=== PATIENT | male | born 1960 | race African-American/Black ===

== ENCOUNTER → 2020-09-18 09:38 | Outpatient (CLI) | payer OTHER, SELFPAY ==
[2020-09-18 11:00] LABS: COVID19 -Nasal RAPID Negative (Negative)
== END ==
PROVIDERS: PCP Orthopaedic Surgery; Visit Provider Physician Assistant
DX: Z20.822 Contact with and (suspected) exposure to COVID-19 (principal)
CPT/HCPCS: 87635

== ENCOUNTER 2020-09-20 06:05 | Inpatient (IN) | payer OTHER, SELFPAY ==
[2020-09-20] VITALS (11 sets, daily range): BP systolic 118–144; BP diastolic 73–90; PULSE 89–101; RESP 14–22; TEMP 35.6–36.8; O2SAT 93–97; BMI 31.3
--- NOTE | 2020-09-20 07:00 | DI.RAD.S_ITS ---
PROCEDURE: XR SHOULDER LT 1V INDICATIONS: post op left total shoulder TECHNIQUE: 1 views of the shoulder were acquired. COMPARISON: None. FINDINGS: Bones: Patient is status post left shoulder arthroplasty . Shoulder alignment is anatomic. No suspicious bony lesions. Visualized ribs appear intact. Soft tissues: Expected postsurgical changes are noted in left shoulder soft tissue. IMPRESSION: Postop changes from left shoulder arthroplasty with anatomic shoulder alignment. Dictated by: Tyshawn Jordan M.D. on 09/20/2020 at 13:34 Approved by: Tyshawn Jordan M.D. on 09/20/2020 at 13:35
[2020-09-20] MEDS: ACETAMINOPHEN 325 MG TABLET 975 MG PO (07:06)
[2020-09-20] MEDS: MELOXICAM 7.5 MG TABLET 15 MG PO (07:06)
[2020-09-20] MEDS: PREGABALIN 75 MG CAPSULE PO (07:06)
--- NOTE | 2020-09-20 07:34 | PM.PREOP ---
Pre-operative Note COVID-19 COVID-19 status: Negative Result date/Date tested (Pos, Neg/Pending): 09/18/20 Interval Note History & Physical reviewed/Exam performed by Physician: Yes Changes to H&P: No
[2020-09-20] MEDS: MIDAZOLAM 2 MG/2 ML VIAL IV (07:36)
--- NOTE | 2020-09-20 07:38 | P.OP_ITS ---
Operative Date/Time/Diagnoses Date of procedure: 09/20/20 Time of procedure: 10:28 Pre-op diagnosis: Left shoulder osteoarthritis Post-op diagnosis: same Procedure & Clinicians Procedure: Left total shoulder replacement Same procedure as scheduled: Yes Indications: The patient has had progressively worsening left shoulder pain with radiographic changes consistent with arthritis. Non-operative management has failed and the patient has requested total shoulder replacement. The risks, benefits and alternatives to surgery were discussed with the patient prior to proceeding. Risks discussed included, but were not limited to, failure to relieve pain, stiffness, infection, nerve damage, deep venous thrombosis, pulmonary embolism, stroke, coma, heart attack, permanent paralysis and , as well as the potential need for eventual revision of the prosthetic. Surgeon: Reinaldo Wagner Biomass Production Manager: Isaiah Panchal Click Yes if Unassisted: No Anesthesia Type: General, Peripheral nerve block and Local Operative Notes Closure Type: primary Specimen(s): none sent Prosthetic devices, grafts, tissues, transplants, or devices: Implants used in this procedure manufactured by the [employer] and included an Eclipse stemless total shoulder system with a 49 mm trunion, a large cage screw, a medium VaultLock glenoid and a 49/20 Eclipse humeral head. In addition a SpeedBridge set of 4 SwiveLock anchors was used for subscapularis repair. Applied: implant(s) Estimated Blood Loss (mL): 100 Blood products transfused: none Procedure in detail: The patient was seen in the pre-operative area, where the patient identified the left shoulder as the operative site and this was marked with my initials. The patient received pre-operative antibiotics, underwent an interscalene block, and was taken to the operating room and placed on the operative table in the supine position. After satisfactory anesthesia, a full ?time out? was performed. The patient was repositioned in the ?beach chair? position using a dedicated positioner. All pressure points were well padded, and the knees were slightly bent to prevent tension on the sciatic nerves. The left arm was prepared from the fingers to the base of the neck with ChloroPrep in the usual fashion and draped through sterile drapes. An approximately 15 cm incision was created, starting at the clavicle above the coracoid process and extended towards the deltoid insertion. The deltopectoral interval was used to access the shoulder. The interval was identified at the coracoid and carried distally as there was no obvious cephalic vein distally. A self retaining retractor was placed. The upper centimeter of the pectoralis major tendon was released. The ?three sisters? were identified and cauterized. The axillary nerve was palpated and protected throughout the case. The biceps was released from its groove and tenodesed over the top of the pectoralis major tendon. The subscapularis was released from the lesser tuberosity with a subscapularis peel and tagged for later repair. Humeral osteophytes were removed. The shoulder was dislocated and a cutting guide was used for the proximal humeral osteotomy in 30 degrees of retroversion. The trunion was sized. The central cylinder was scored in the metaphyseal bone. The guide pin was used to measure the depth of the screw. A proximal humeral protector was then placed. We then removed the self-retaining retractor and placed retractors to access the glenoid. The subscapularis was released with a ?360 degree release? with care being taken to protect the axillary nerve with the inferior portion of this procedure. The remnant of labrum and biceps stump were removed. The appropriate size reamer was chosen with the glenoid sizer, and the guide pin placed. The glenoid was appropriately reamed. The center hole was enlarged and the upper pole and inferior slot were created. The trial glenoid was placed with good stability. We then cemented the final implant into place after irrigating the peg holes and drying them with thrombin-soaked Gelfoam. The central peg of the implant was coated with demineralized bone matrix as the humeral head had been dropped from the field and no bone graft was available. We returned our attention to the humerus, the final trunnion was placed and impacted into the metaphyseal bone. The central cage screw was then screwed into position with a small amount of demineralized bone matrix in the screw as graft. A trial humeral head was applied and a trial reduction performed. Stability was checked with 50% posterior translation, 45? external rotation at the side with the subscapularis held in the repaired position and 80? internal rotation in the ?scarecrow position?. This was felt to be satisfactory and the appropriate implants were opened. The guide for anchor placement was applied to the neck of the humerus. For holes were created with the awl for anchor placement using the guide to avoid the cage screw. The final humeral head was then impacted into position. The joint was relocated one final time. The joint was irrigated and the subscapularis repaired using a double row SpeedBridge technique. The top of the subscapularis was closed to the leading edge of the supraspinatus with a figure of 8 #2 TiCron to close the rotator interval. The deltopectoral interval was closed with interrupted 0 Vicryl. The subcutaneous layer was closed with 3-0 Vicryl, and the skin with a running 3-0 V-Lock suture and SteriStrips. An Aquacel Ag dressing was applied, the patient?s arm was placed in a sling, and the patient was taken to recovery having tolerated the procedure well. Complications: none Post-operative Condition: stable Disposition: PACU Plan for aftercare: The patient will be maintained on a standard total shoulder replacement protocol with passive range of motion limited to 90 degrees forward flexion, 0 degrees external rotation at the side, 0 degrees abduction and internal rotation to the body. The patient will receive aspirin and sequential compression devices for DVT prophylaxis. The patient will be discharged home when safe for the home environment, likely tomorrow.
--- NOTE | 2020-09-20 07:51 | P.PCN_ITS ---
Procedures Date/Time Date of procedure: 09/20/20 Time of procedure: 07:44 Nerve Block Time out performed: Yes Local anesthetic used: other (15mL 0.5opivacaine, 5mL 2* idocaine) Location of anesthetic used: interscalene Amount of anesthesia used (mL): 20 Nerve blocks: brachial plexus (interscalene) Procedure successful: Yes Patient tolerated procedure: well Complications: none Additional comments: Brachial plexus nerve block for post operative pain management. Risks and benefits discussed, including bleeding, infection, intravascular injection, nerve damage, block failure. Standard ASA monitors, NC O2. Pt supine. Chloroprep site preparation, sterile technique. Brachial plexus identified with US guidance, traced from supraclavicular to interscalene. 1mL 2% lidocaine skin wheal. 22g x 50mm Pajunk advanced with in-plane US guidance to brachial plexus. Negative aspiration. LA injected with intermittent negative aspiration. Good LA spread noted on US. No pain, no paraesthesia. Pt tolerated procedure well. Vital signs stable.
[2020-09-20] MEDS: LACTATED RINGERS 1,000 ML 42 ML IV ×2 (07:52→09:59)
[2020-09-20] MEDS: CEFAZOLIN 2 GM/100 ML FROZ.PIGGY IV (07:53)
--- NOTE | 2020-09-20 08:00 | SUR.PREOP ---
Block start time at 0736 . Monitoring initiated and maintained throughout procedure. Oxygen at 2L NC and 2MgVersed given per anesthesiologist order. Patient remained stable throughout procedure, no adverse reactions noted. Block end time 0744.
--- NOTE | 2020-09-20 08:28 | SUR.OPER ---
Beach chair with Kailey/Kumar shoulder positioner. Lower body on padded OR bed. Head in foam padded head cradle, secured with straps. Non-operative arm secured <90 degrees abduction. Pillow under knees. Safety belt at thigh. Cloth tape over blanket over lower legs.
[2020-09-20] MEDS: THROMBIN (RECOMBINANT) 5,000 UNIT VIAL 5000 UNIT TOP (08:35)
[2020-09-20] MEDS: BUPIVACAINE 0.25% W/ EPI (PF) 10 ML VIAL 20 ML INJ (08:36)
[2020-09-20] MEDS: TRANEXAMIC ACID 1,000 MG VIAL 1000 MG INJ ×2 (08:39→09:57)
[2020-09-20] MEDS: LACTATED RINGERS 1,000 ML 100 ML IV (12:28)
--- NOTE | 2020-09-20 12:37 | PC.NURSE ---
Addendum entered by Rosie Ramirez R.N. 09/20/20 15:14: Patient worked with PT. Cleared for D/C. Patient and instructed on f/u appointment, s/s of infection, medications and activity. Patient and spouse verbalized understanding. IV removed. Tip intact, patient tolerated. Patient discharged via wheelchair with aide assist. Original Note: Assumed care of patient at 1130 from PACU. Patient A/O x 4. LR at 100 cc/hr infusing in right hand. Patient at 96% on room air. Intermittent cough r/t intubation. CPAP and belongings retrieved from PACU. Patients is bedside from admission. Lungs CTA, IS bedside, patient instructed on use. Cont. pulse ox on. HR WNL, pulses equal. LUE CMS intact, aquacel is CDI, sling intact. SCD's on. Patient denies pain at this time. No post op void at this time. BT active x 4, patient tolerating general diet. Patient instructed to call before getting OOB the first time. Call light in reach.
--- NOTE | 2020-09-20 14:31 | PT.IIE ---
Current Diagnoses Primary osteoarthritis, left shoulder (09/20/20) Surgery Performed Operation Date: 09/20/20 07:45 Actual Procedures p Total Shoulder Arthroplasty(Left) - Reinaldo Wagner MD Physical Therapy Inpatient Evaluation/Re-Eval M1 PT/OT-IP Prior Functional Status Start: 09/20/20 12:44 Freq: NEEDED Status: Discharge Protocol: Document 09/20/20 14:31 AW (Rec: 09/20/20 15:17 AW [id number]) Medical Review Prior Functional Status Medical History Reviewed Yes Communication Pt is an effective verbal communicator. Mobility and Gait Pt is independently mobile but admits that he usually has to sit and rest after a grocery shopping trip. He had lumbar surgery ~9 years ago. Activities of Daily Living and IADL's Pt has been slow but independent with all ADL's. He drives but on a limited basis . Social History Household Members spouse Living Arrangements House Number of Floors (Floors) Two Floors Number of Stairs To Enter/Railing? 1 CARMEN through the garage. There is a table on one side and a work bench on the other which he can use for support. 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 M2 PT-IP Current Condition Start: 09/20/20 12:44 Freq: NEEDED Status: Discharge Protocol: Document 09/20/20 14:31 AW (Rec: 09/20/20 15:17 AW [id number]) Physical Therapy Current Condition Current Condition Evaluation Date 09/20/20 Treatment Diagnosis L TSA; decreased indep with ADL's Onset Date 09/20/20 Precautions Shoulder Precautions Sling,PROM,Internal Rotation to Body,No External Rotation, No Abduction,Forward Flexion to 90 degrees,Pendulums Brace soft sling LUE Weight Bearing Status Weight Bearing Status Non-Weight Bearing Allowed Weight Bearing Amount (enter % NWB LUE or #) (%) M3 PT-IP Subjective Start: 09/20/20 12:44 Freq: NEEDED Status: Discharge Protocol: Document 09/20/20 14:31 AW (Rec: 09/20/20 15:17 AW [id number]) Subjective Physical Therapy Visit Type Type Initial Evaluation Visit Start Time 14:04 Visit Stop Time 14:31 Total Visit Minutes 27 Notes Pt's was present and participated in sling management and precaution awareness training Number of CASE THERAPIST Visits 0 Physical Therapy Visit Comments Patient Comments Pt would like to go home today Therapy Pain Assessment Pain When Pain Assessed At Rest Pain Present Pain Present Denied Pain M4 PT-IP Mobility and Gait Start: 09/20/20 12:44 Freq: NEEDED Status: Discharge Protocol: Document 09/20/20 14:31 AW (Rec: 09/20/20 15:17 AW [id number]) PT-Bed Mobility Assessment Supine to Sit Supine to Sit Standby Assistance,Head of Bed Elevated Sit to Supine Sit to Supine Standby Assistance,Head of Bed Elevated Scooting Scooting to Edge of Bed Standby Assistance PT-Transfer Assessment Sit to and From Stand Sit to and from Stand Standby Assistance Equipment Transfer Assistive Device Gait Belt Transfers Transfer Destination Bed,Chair Transfer Technique Stand Step Pivot Transfer Ability Level of Assist Standby Assistance Comments Mobility Comments Pt was lying in the bed as PT arrived. BP 146/89 HR 89. He states he has a firm wedge pillow for bed so practiced supine to sit with HOB elevated. He stood at EOB SBA and walked to the sink with steady gait. Pt and his spouse participated in training for fitting, donning, and doffing the sling. Pt then donned a face mask and ambulated in the halls a total of 150 feet and completed stair assessment. On return to the room, he transferred to and from the chair without need for UE support before returning to supine on the bed. All mobility was SBA. Gait Assessment Gait Gait Assistance Required: Standby Assistance Distance (Feet) 150 Able to Maintain Weight Bearing Status Yes During Gait Assistive Devices Assistive Device Gait Belt Orthotic/Prosthetic Devices or Brace: Yes Gait Deviations General Gait Pattern Within Normal Limits Comments Gait Comments Steady gait in and out of the room SBA. Stair Climbing Assessment Evaluation Level of Assist On Stairs Standby Assistance Technique/Endurance Stair Climbing Direction Ascend and Descend Stair Climbing Technique Step to Step Number of Steps Climbed 3 Query Text: Stair Climbing Set # Repetitions (reps) 1 PT-Balance Assessment Sitting Balance and Reactions Static Sitting Balance Ability Good Dynamic Sitting Balance Ability Good Standing Balance and Reactions Static Standing Balance Ability Good Dynamic Standing Balance Ability Good Device Used none M5 PT-IP Objective Assessments Start: 09/20/20 12:44 Freq: NEEDED Status: Discharge Protocol: Document 09/20/20 14:31 AW (Rec: 09/20/20 15:17 AW [id number]) Orientation Orientation/Cognition Level of Alertness Alert Orientation Name,Age,Birthday,Month,Date, Year,Day of Week,Place, Situation Language Function Ability No Deficits Noted Safety Awareness Understands Safety Issues Memory Description No Deficits Noted Gross Range of Motion Upper Extremity ROM Assessment Left Impaired Lower Extremity ROM Assessment Within Functional Limits Strength Upper Extremity Strength Assessment Left Impaired Lower Extremity Strength Assessment Within Functional Limits Comments Strength Comments RUE grossly 5/5 all planes Sensation Assessment Sensation Gross Sensation Left UE Impaired Light Touch Impaired Proprioception (Position) Impaired Sensation Description Numbness Muscle Tone Muscle Tone WNL Yes M6 PT-IP Treatment Start: 09/20/20 12:44 Freq: NEEDED Status: Discharge Protocol: Document 09/20/20 14:31 AW (Rec: 09/20/20 15:17 AW [id number]) Physical Therapy Treatment Exercises Exercises Shoulder Pendulums,Elbow Flexion/Extension,Wrist ROM, Hand ROM Education Education Provided Precautions,Weight Bearing Status,Post-Op Packet,Safety Other Treatments Other Treatment Performed Educated pt on shoulder precautions, sling fitting, and safe mobility with LUE in sling. Pt and his spouse understood all and could return demonstrate. M7 PT-IP Assessment and Plan Start: 09/20/20 12:44 Freq: NEEDED Status: Discharge Protocol: Document 09/20/20 14:31 AW (Rec: 09/20/20 15:17 AW [id number]) PT Summary Assessment and Plan Potential Rehabilitation Potential Good Status of Condition at Evaluation Evolving Summary Impairments Pain,ROM,Strength,Sensation, Bed Mobility,Transfers Assessment Summary Matthew is a 60 yo man seen for PT evaluation on POD0 following L anatomic TSA. He is right-hand dominant and independent in all regards at baseline. Pt required no more than SBA on evaluation and was able to don/doff the shoulder sling with 's assist. Pt will be safe to discharge home with assist and outpatient PT once medically cleared. Goals Bed Mobility Goal Independent Transfer Goal Independent Gait Goal Independent Gait Distance 300 Frequency of Treatment Frequency Of Treatment Twice a Day Treatment Plan Physical Therapy Treatment Plan Bed Mobility Training,Transfer Training,Gait Training, Therapeutic Exercise,Balance Retraining,Post Op Education, Discharge Planning,Hot or Cold Pack Precautions Shoulder Precautions Sling,PROM,Internal Rotation to Body,No External Rotation, No Abduction,Forward Flexion to 90 degrees,Pendulums Brace soft sling LUE Recommendations To Nursing Amount of Assist Needed Standby Assistance Discharge Recommendations PT Discharge Recommendations Home with Assistance, Outpatient PT Transportation Needs at Discharge Private Vehicle
[2020-09-20] MEDS: ACETAMINOPHEN 325 MG TABLET 650 MG PO (15:01)
== END 2020-09-20 15:15 | disposition home or self-care (01) | DRG 483 ==
PROVIDERS: Admitting Provider Orthopaedic Surgery; PCP Orthopaedic Surgery; Referring Provider Family Medicine; Visit Provider Orthopaedic Surgery
PROC: 0RRK0JZ Replacement of Left Shoulder Joint with Synthetic Substitute, Open Approach (ICD-10-PCS; CPT 23472; principal; 2020-09-20 07:45)
DX: M19.012 Primary osteoarthritis, left shoulder (principal); I10 Essential (primary) hypertension; G47.33 Obstructive sleep apnea (adult) (pediatric)
CPT/HCPCS: 64415; 73020; 97161; C1776; J0690; J1100; J2250; J2405; J2704; J3010

== ENCOUNTER → 2020-11-15 09:58 | Outpatient (CLI) | payer OTHER, SELFPAY ==
[2020-09-20 12:15] VITALS: BMI 31.3
[2020-11-15 10:58] LABS: COVID19 -Nasal RAPID Negative (Negative)
== END ==
PROVIDERS: PCP Orthopaedic Surgery; Visit Provider Student in an Organized Health Care Education/Training Program
DX: Z20.822 Contact with and (suspected) exposure to COVID-19 (principal); Z01.812 Encounter for preprocedural laboratory examination
CPT/HCPCS: 87635

== ENCOUNTER 2020-11-17 08:52 | Day surgery (SDC) | payer OTHER, SELFPAY ==
[2020-09-20 12:15] VITALS: BMI 31.3
--- NOTE | 2020-11-17 | PATH_ITS ---
[facility] Accession Number: [id number] . 01 Material submitted: . PART A: rectum - RECTAL POLYP PART B: colon - ASCENDING COLON POLYP X2 PART C: sigmoid colon - SIGMOID COLON POLYPS X6 . 02 Diagnosis: A. Rectum, Polyp, Biopsy: Tubular adenoma. . B. Ascending Colon, Polyp x2, Biopsy: Tubular adenomas. . C. Sigmoid Colon, Polyps x6, Biopsies: Hyperplastic polyps. [facility] 11/22/2020 1121 Local . 02 Electronically signed: . Renetta Estevez MD, Pathologist NPI- [id number] . 01 Gross description: . Part A: RECTAL POLYP: Received in formalin is 1 fragment(s) of mendoza, soft tissue measuring 0.4 x 0.3 x 0.3 cm submitted entirely in 1 cassette(s) Part B: ASCENDING COLON POLYP X2: Received in formalin are 2 fragment(s) of mendoza, soft tissue measuring 0.4 x 0.4 x 0.3 cm to 0.4 x 0.3 x 0.3 cm submitted entirely in 1 cassette(s) Part C: SIGMOID COLON POLYPS X6: Received in formalin are multiple fragment(s) of mendoza, soft tissue measuring 2.0 x 1.1 x 0.3 cm in aggregate submitted entirely in 1 cassette(s) /KARY 11/18/2020 0912 Local . 02 Pathologist provided ICD-10: D12.8, D12.2 . 02 CPT . 798263, [id number], 355139 Performed at: [facility] [address], [place], [place] [id number] MD Julius Dillard MD Phone: [phone] Performed at: 02 [place] [id number] [place] [id number] MD Renetta Estevez MD Phone: [phone]
[2020-11-17 09:04] VITALS: BMI 66.5
[2020-11-17] MEDS: LACTATED RINGERS 1,000 ML 200 ML IV (09:13)
--- NOTE | 2020-11-17 10:17 | PM.HP.1 ---
History of Present Illness History of Present Illness Chief complaint: SCREENING COLONOSCOPY W/POSS BX Patient History Family & Social History Social History: household members spouse Tobacco & Substance use: Smoking Status Former smoker alcohol intake current alcohol intake frequency a few times a week Substance Use Type does not use Meds Home Medications and Allergies Home Medications Medication Instructions Recorded Confirmed Type dorzolamide 1 drp EYE-RIGHT DAILY 09/20/20 11/17/20 History gabapentin 300 mg PO BEDTIME 09/20/20 11/17/20 History hydroxyzine pamoate 25 mg PO Q6HR PRN #30 cap 09/20/20 11/17/20 Rx latanoprost 1 drp EYE-BOTH DAILY 09/20/20 11/17/20 History lisinopril-hydrochlorothiazide 1 tab PO DAILY 09/20/20 11/17/20 History [Zestoretic] oxycodone 5 mg PO Q4H PRN #40 tab 09/20/20 11/17/20 Rx Allergies Allergy/AdvReac Type Severity Reaction Status Date / Time No Known Allergies Allergy Verified 09/17/20 12:16 Review of Systems Review of Systems ROS: Yes All systems reviewed with the patient and are negative except as otherwise documented Exam Vital Signs (past 8 hours): Oxygen Delivery Method Room Air Narrative Exam Narrative: Awake alert and oriented x3, pupils equal round reactive to light, oropharynx clear, heart regular rate and rhythm, lungs clear to auscultation bilaterally, abdomen nontender and nondistended, extremities without edema, no gross neurologic deficits noted Assessment & Plan Assessment & Plan narrative: Colon cancer screening for colonoscopy COVID-19 COVID-19 status: Negative
[2020-11-17] MEDS: MIDAZOLAM 5 MG/5 ML VIAL IV (10:28)
[2020-11-17] MEDS: fentaNYL 250 MCG/5 ML INJ IV (10:28)
--- NOTE | 2020-11-17 10:50 | PM.OP.ENDO ---
Operative Date/Time/Diagnoses Date of procedure: 11/17/20 Procedure & Clinicians Study performed: Colonoscopy with cold forceps and cold snare polypectomy Moderate conscious sedation was administered by the endoscopy nurse and supervised by the endoscopist. The following parameters were monitored: Oxygen saturation, heart rate, blood pressure, and response to care. 5 mg of midazolam and 100 mcg of fentanyl given. Same procedure as scheduled: Yes Indications: Colon cancer screening. Last colonoscopy was about 10 years ago. Procedure Notes Procedure in detail: Prior to the procedure, history and physical was performed, and patient medications and allergies were reviewed. Preprocedure nursing history and assessment was reviewed. Patient identification and proposed procedure were verified by the physician and nurse in the procedure room. The physical status of the patient was reassessed after the procedure. After informed consent was obtained including risks, benefits, and alternatives, the scope was passed under direct vision. Throughout the procedure, the patient's blood pressure, pulse, and oxygen saturations were monitored continuously. The colonoscope was introduced through the anus and advanced to the cecum as identified by the appendiceal orifice and ileocecal valve. The patient tolerated the procedure well. Bowel prep was deemed adequate to detect polyps greater than 5 mm. Digital rectal examination and perianal examinations were unremarkable. Retroflexion in the rectum was unrevealing. Scattered small diverticuli noted in the sigmoid colon A 4 mm sessile rectal polyp was removed using a cold snare and retrieved 6 sessile polyps in the sigmoid colon measuring between 4 and 8 mm were removed using a cold snare and retrieved. Two 3 mm sessile polyps were removed from the ascending colon using a cold forceps Impression: Sigmoid colon diverticulosis 4 mm rectal polyp removed Six polyps measuring between 4 and 8 mm in the sigmoid colon removed Two 3 mm ascending colon polyps removed Sedation minutes: 25 Complications: other (EBL minimal. No complications) Post-procedure Plan for aftercare: Follow-up pathology results Repeat colonoscopy at a date to be determined based on pathology results Resume home medications High fiber diet Patient has a contact number available for emergencies. The signs and symptoms of potential delayed complications were discussed with the patient. Return to normal activities tomorrow. Written discharge instructions were provided to the patient. Discharge home with escort
[2020-11-17 10:51] VITALS: BP 106/78; PULSE 96; RESP 16; TEMP 36.9; O2SAT 97
[2020-11-17 10:56] VITALS: BP 116/81; PULSE 90; RESP 14; O2SAT 98
[2020-11-17 11:03] VITALS: BP 115/84; PULSE 90; RESP 22; O2SAT 98
[2020-11-17 11:08] VITALS: BP 111/79; PULSE 91; RESP 19; O2SAT 98
[2020-11-17 11:40] VITALS: BP 120/70; PULSE 90; RESP 16; TEMP 36.9; O2SAT 99
== END 2020-11-17 11:53 | disposition home or self-care (01) ==
PROVIDERS: PCP Orthopaedic Surgery; Referring Provider Internal Medicine; Visit Provider Internal Medicine
PROC: 0DJD8ZZ Inspection of Lower Intestinal Tract, Via Natural or Artificial Opening Endoscopic (ICD-10-PCS; CPT 45378; principal; 2020-11-17 10:00)
DX: Z12.11 Encounter for screening for malignant neoplasm of colon (principal); K57.30 Diverticulosis of large intestine without perforation or abscess without bleeding; K62.1 Rectal polyp; D12.2 Benign neoplasm of ascending colon
CPT/HCPCS: 45385; 45380; J2250; J3010

== ENCOUNTER → 2021-04-21 13:33 | Outpatient (CLI) | payer OTHER, SELFPAY ==
[2020-09-20 12:15] VITALS: BMI 31.3
--- NOTE | 2021-04-21 | DI.MRI.S_ITS ---
PROCEDURE: MR CERVICAL SPINE WO CON INDICATIONS: Spinal stenosis, cervical region TECHNIQUE: Noncontrast sagittal T1 spin echo and T2 fast spin echo, sagittal STIR, foraminal oblique sagittal T2 fast spin echo, and axial gradient echo or T2 fast spin echo through the cervical spine. COMPARISON: [facility] Outside Film, MR, MR CERVICAL SPINE WITHOUT CONTRAST, 03/19/2020, 9:50. FINDINGS: Image quality: Excellent. Alignment and Curvature: Straightening of the normal lordotic curvature. Grade 1 retrolisthesis of C3 on C4 and C4 on C5. Grade 1 retrolisthesis of C5 on C6 and C6 on C7. Bone Marrow: Multilevel degenerative endplate sclerosis and spurring. Diffuse facet arthropathy. No evidence of acute fracture. Spinal Cord: Visualized spinal cord has normal size and signal. No cerebellar tonsillar herniation. Paraspinous Soft Tissues: No paravertebral masses. Prevertebral soft tissues are normal in thickness. C2-C3: Mild canal and right foraminal narrowing. Severe left foraminal stenosis with nerve root compression. This appears progressed on the left since 03/19/20 C3-C4: Mild canal stenosis with face mint of the anterior thecal sac. Severe right foraminal stenosis with nerve root compression. Moderate left foraminal stenosis. There is mild progression bilaterally since the prior study. C4-C5: Mild canal narrowing. Severe bilateral foraminal stenosis with nerve root compression on both sides. This is minimally bilaterally progressed since the prior study. C5-C6: Minimal canal narrowing. Mild left foraminal stenosis. Moderate to severe right foraminal narrowing. Overall, no interval change. C6-C7: Mild canal narrowing. Moderate to severe bilateral foraminal stenosis without definite interval change. C7-T1: No definite canal stenosis. Moderate right foraminal narrowing and mild left foraminal stenosis, no interval change IMPRESSION: Severe multilevel spondylosis and facet arthropathy, with interval progression at C2-C3, C3-C4 and C4-C5. Dictated by: Gus Waddell M.D. on 04/21/2021 at 16:12 Approved by: uGs Waddell M.D. on 04/21/2021 at 16:20
== END ==
PROVIDERS: PCP Orthopaedic Surgery; Referring Provider Physical Medicine & Rehabilitation; Visit Provider Physical Medicine & Rehabilitation
DX: M48.02 Spinal stenosis, cervical region (principal); M47.812 Spondylosis without myelopathy or radiculopathy, cervical region
CPT/HCPCS: 72141

== ENCOUNTER → 2021-09-19 08:45 | Outpatient (CLI) | payer OTHER, SELFPAY ==
[2020-09-20 12:15] VITALS: BMI 31.3
[2021-09-19 11:00] LABS: COVID19 -Nasal RAPID Negative (Negative)
== END ==
PROVIDERS: PCP Orthopaedic Surgery; Visit Provider Family Medicine Sleep Medicine
DX: Z20.822 Contact with and (suspected) exposure to COVID-19 (principal)
CPT/HCPCS: 87635; C9803

== ENCOUNTER 2021-09-21 12:04 | Day surgery (SDC) | payer OTHER, SELFPAY ==
[2020-09-20 12:15] VITALS: BMI 31.3
[2021-09-14 14:56] VITALS: BMI 32.3
[2021-09-21] VITALS (20 sets, daily range): BP systolic 122–195; BP diastolic 78–110; PULSE 88–119; RESP 12–24; TEMP 36.2–36.9; O2SAT 91–99; BMI 32.3
--- NOTE | 2021-09-21 | DI.RAD.S_ITS ---
PROCEDURE: XR CERVICAL SPINE 2V OR 3V INDICATIONS: C4-5 C5-6 ACDF TECHNIQUE: 2 intraoperative fluoroscopic view(s) of the cervical spine were acquired. COMPARISON: None. FINDINGS: Intraoperative fluoroscopic images of cervical spine shows anterior fusion at C4-5 and C5-6 levels. IMPRESSION: Fluoro guidance was provided intraoperatively for ACDF at C4-5 and C5-6 levels. Dictated by: Tyshawn Jordna M.D. on 09/21/2021 at 17:15 Approved by: Tyshawn Jordan M.D. on 09/21/2021 at 17:16
[2021-09-21] MEDS: ACETAMINOPHEN 325 MG TABLET 975 MG PO (12:33)
[2021-09-21] MEDS: LACTATED RINGERS 1,000 ML 42 ML IV ×2 (12:34→16:52)
--- NOTE | 2021-09-21 13:42 | PM.PREOP ---
Pre-operative Note COVID-19 COVID-19 status: Negative Result date/Date tested (Pos, Neg/Pending): 09/21/21 Criteria for continued procedure: Expected advancement of disease process, Possibility delay results in more complex future surgery or treatment, Increased loss of function, Continuing or worsening of significant or severe pain, Deterioration of the patient's condition or overall health and Delay expected to result in less-positive ultimate med/surg outcome Interval Note History & Physical reviewed/Exam performed by Physician: Yes Changes to H&P: No
--- NOTE | 2021-09-21 14:03 | SUR.OPER ---
Supine, head on gel donut. Arms padded with gel pads, tucked at sides, towel roll under shoulders. Safety belt at thigh. Legs uncrossed.
--- NOTE | 2021-09-21 14:37 | P.OP_ITS ---
Operative Date/Time/Diagnoses Date of procedure: 09/21/21 Time of procedure: 14:50 Pre-op diagnosis: 1. C4-5, C5-6 spinal stenosis with radiculopathy 2. C4-5, C5-6 spondylosis with radiculopathy Post-op diagnosis: same Procedure & Clinicians Procedure: 1. C4-5, C5-6 anterior cervical diskectomy and fusion 2. C4-5, C5-6 anterior interbody cage placement 3. C4-5, C5-6 anterior instrumentation with plate and screw placement in C5-C6 and C7 vertebrae 4. Utilization of microsurgical technique and operating microscope Same procedure as scheduled: Yes Indications: Patient has been having chronic neck pain and worsening cervical radiculopathy. Patient failed multiple conservative management with worsening pain weakness and numbness in her upper extremity. Patient has been having difficulty performing activity of daily living. After discussing risks benefits of treatment options, patient elected proceed with surgery. Surgeon: Krishna Ortega Geomorphologist: Divine Mary Click Yes if Unassisted: No Anesthesia Type: General Operative Notes Closure Type: primary Specimen(s): none sent Prosthetic devices, grafts, tissues, transplants, or devices: Globus Extend Plate, Titanium cages Estimated Blood Loss (mL): 5 Blood products transfused: none Procedure in detail: Patient was seen in the preoperative area. Risks and benefits of the surgery was discussed with the patient. Operative consent was obtained and placed in the chart. Patient was then taken to the operative room. Prophylactic antibiotic was given less than 0.5 hr prior to skin incision. General anesthesia was administered. Patient was placed into a supine position on her radiolucent table. Bilateral shoulders were taped down to allow proper C-arm imaging. Anterior cervical area was prepped and draped in a sterile fashion. Time-out was performed at this time. Using lateral C-arm imaging, the level between C4 and C6 was identified and marked on patient's neck. A oblique incision from midline towards medial border of sternocleidomastoid muscle was made. The platysma muscle was incised in line with skin incision. Metzenbaum scissor was used to develop the plane between the medial border of sternocleidomastoid d and the strap muscles medially. The carotid sheath and its contents were identified and protected behind the hand- held retractor during the entire case. The plane between the carotid sheath and strap muscles was developed with Metzenbaum scissors. Dissection was made down to the level of the anterior cervical fascia. Longus colli muscle was incised on the anterior aspect of vertebral bodies bilaterally from C4-6. Spinal needle was placed into the C5-6 disc space and confirmed with lateral C-arm imaging. Using microsurgical technique and operative microscope, anterior cervical diskectomy was performed at C4-5, C5-6 level. This was done by removing the disc material, removing the anterior and posterior osteophytes posterior longitudinal ligaments along with performing bilateral foraminotomies at both levels. Patient was found to have severe central and foraminal stenosis at both levels. Patient's stenosis was fully decompressed after decompression was completed. After the diskectomy was completed, 2 anterior interbody cages were obtained. The cages were packed with DBM bone grafting material. One cage each along with the bone grafting material was then packed into the interbody spaces from C4-C6 with one cage into each interbody level. After the cages were placed, the anterior cervical plate was stabilized to the C4-6 vertebrae using 2 screws at each each level. Total 6 screws were placed. After confirming placement of the hardware with AP and lateral C-arm imaging, the screws were locked into the plate using the locking mechanism and torque limiting screwdriver. After the hardware was placed and confirmed with AP and lateral C-arm imaging, the wound was irrigated with sterile normal saline. The platysma muscle and the subcutaneous tissue was closed with 2-0 Vicryl. The skin was closed with 4-0 Monocryl and Steri-Strips. Patient tolerated the procedure well. Patient was transferred recovery room in stable condition. There were no complications. Complications: none Post-operative Condition: stable Disposition: PACU Plan for aftercare: Admit to inpatient hospital
[2021-09-21] MEDS: CEFAZOLIN 2 GM/20 ML SYRINGE IV ×2 (14:50→22:57)
--- NOTE | 2021-09-21 14:59 | SUR.OPER ---
Supine, head on gel donut. Arms padded with gel pads, tucked at sides, towel roll under shoulders. Safety belt at thigh. Legs uncrossed. Pillow under knees, gel under heels
[2021-09-21] MEDS: BUPIVACAINE 0.25% (PF) 60 ML, EPINEPHrine 0.3 MG INJ (15:05)
[2021-09-21] MEDS: hydrOXYzine 50 MG/ML INJ 25 MG IM (17:28)
[2021-09-21] MEDS: LORazepam 2 MG/ML INJ 0.5 MG IV (17:28)
[2021-09-21] MEDS: ACETAMINOPHEN 325 MG TABLET 650 MG PO (19:05)
[2021-09-21] MEDS: hydrOXYzine pamoate 25 MG CAPSULE PO (19:06)
[2021-09-21] MEDS: SODIUM CHLORIDE 0.9% 1,000 ML 100 ML IV (22:08)
[2021-09-22 00:33] VITALS: O2SAT 95
[2021-09-22] MEDS: ACETAMINOPHEN 325 MG TABLET 650 MG PO (04:05)
[2021-09-22 04:24] VITALS: BP 132/95; PULSE 105; RESP 14; TEMP 36.8; O2SAT 96
[2021-09-22] MEDS: CEFAZOLIN 2 GM/20 ML SYRINGE IV (06:27)
[2021-09-22] MEDS: OXYCODONE IR 5 MG TABLET 10 MG PO (07:53)
--- NOTE | 2021-09-22 07:53 | P.DS_ITS ---
History of Present Illness History of Present Illness Date Patient Seen: 09/22/21 Time Patient Seen: 07:53 Chief complaint: neck pain s/p cervical ACDF Narrative: patient is complaining of mild to moderate neck pain this morning. He is very happy that his right shoulder pain has resolved since surgery. He denies any numbness or tingling in his upper extremities. No nausea or vomiting. Overall he is feeling well like to be discharged home today. Discharge Providers Provider Discharge Date: 09/22/21 Primary care physician: Uche Fontanez MD Consults: 09/21/21 12:44 Consult to Respiratory Therapy Evaluate & Treat Comment: Physician Instructions: Evaluate and treat 09/21/21 16:54 Consult to Physician Routine Comment: consult to primary care provider for followup Consulting Provider: Krishna Ortega Reason for consultation: Positive STOP BANG, management of obstructive sleep apnea Has provider been notified: Yes 09/21/21 18:20 Consult to Occupational Therapy Evaluate & Treat Comment: Physician Instructions: Evaluate and treat Consult to Physical Therapy Evaluate & Treat Comment: Physician Instructions: Evaluate and Treat Discharge provider: Cassidy Mar PA-C Summary Hospital Course Discharge Diagnosis: 1. C4-5, C5-6 spinal stenosis with radiculopathy 2. C4-5, C5-6 spondylosis with radiculopathy Hospital Course: Operative Date/Time/Diagnoses Date of procedure: 09/21/21 Time of procedure: 14:50 Procedure & Clinicians Procedure: 1.? C4-5, C5-6 anterior cervical diskectomy and fusion 2.? C4-5, C5-6 anterior interbody cage placement 3.? C4-5, C5-6 anterior instrumentation with plate and screw placement in C5-C6 and C7 vertebrae 4.? Utilization of microsurgical technique and operating microscope Same procedure as scheduled: Yes Indications: Patient has been having chronic neck pain and worsening cervical radiculopathy. Patient failed multiple conservative management with worsening pain weakness and numbness in her upper extremity.? Patient has been having difficulty performing activity of daily living.? After discussing risks benefits of treatment options, patient elected proceed with surgery. Surgeon: Krishna Ortega Package Handler: Divine Mary Click Yes if Unassisted: No Anesthesia Type: General Operative Notes Closure Type: primary Specimen(s): none sent Prosthetic devices, grafts, tissues, transplants, or devices: Globus Extend Plate, Titanium cages Estimated Blood Loss (mL): 5 Blood products transfused: none Status at Discharge Cognitive/behavioral status at discharge: oriented Functional status at discharge: uses cane/walker Overall status at discharge: patient is progressing back to baseline Exam Vital Signs (past 8 hours): - 09/22/21 00:33 09/22/21 04:24 Temperature 98.2 F Pulse Rate 105 H Respiratory Rate 14 Blood Pressure 132/95 H Pulse Oximetry 95 96 Oxygen Delivery Method Nasal Cannula Oxygen Flow Rate 0 Narrative Exam Narrative: Very pleasant 61-year-old male, resting comfortably in bed, no acute distress. Soft cervical collar is in place. Dressing is clean, dry, intact. Bilateral upper extremity: Motor function is grossly intact, sensation is grossly intact to light touch. [facility] Medical History HTN (hypertension) ANIBAL on CPAP Osteoarthritis Surgical History History of arthroplasty of left shoulder (09/20/20) Hx of colonoscopy (2020) Social History household members: spouse and children Smoking Status: Former smoker alcohol intake: current Discharge Assessment & Plan Assessment and Plan Assessment: -Stable status post C4-5, C5-6 cervical ACDF Plan of Treatment: -mobilize with PT/ OT. Soft cervical collar stays in place. Limit bending, lifting, twisting -Encouraged multimodal pain management -DC home today when cleared by PT Discharge Plan Discharge Plan Patient Disposition: Home Discharge orders & Medications Discharge Orders: Discharge (Order); Ordered 09/22/21 Ordered By: Cassidy Mar Prescriptions: New acetaminophen 500 mg capsule 500 mg PO Q4H MDD max 3000 mg per day PRN (Reason: Pain, Mild (1-3)) Qty: 90 0RF docusate sodium 100 mg Capsule 100 mg PO BID PRN (Reason: constipation from narcotic pain meds) Qty: 14 0RF hydroxyzine pamoate 25 mg Capsule 25 mg PO Q4HR PRN (Reason: muscle spasms/pain/nausea) Qty: 30 0RF oxycodone 5 mg Tablet See Rx Instructions .ROUTE .COMPLEX PRN (Reason: Pain, Severe (7-10)) Qty: 42 0RF Rx Instructions: take 1-2 tablets by mouth every 4 hours as needed for moderate to severe postop pain Continued dorzolamide 2 % drops 1 drp EYE-RIGHT DAILY 0RF latanoprost 0.005 % drops 1 drp EYE-BOTH DAILY 0RF lisinopril-hydrochlorothiazide [Zestoretic] 20-12.5 mg tablet 1 tab PO DAILY 0RF sildenafil 100 mg tablet 100 mg DAILY 0RF Follow up/Referrals: Uche Fontanez MD [Primary Care Provider] - Krishna Ortega MD [Physician] - ( 10-14 days for postoperative visit) Diet/Activity/Treatments Diet: Diet as Tolerated Other treatments: Medications: -OTC Tylenol 500 mg 1 tablet every 4 hours as needed for pain/fever. Max 6 ta blets per day. -Oxycodone 5 mg take 1-2 tablets every 4 hours as needed for moderate-severe pain (narcotic pain medication). -As needed medications: -Ducolax and /or MiraLax as needed for constipation from narcotic pain medications. -Pepcid AC as needed for stomach upset. -Vistaril (hydroxyine) 25mg 1 tab every 4 hours as needed for spasms/pain/nausea. Diet: -Stick with soft, easy to swallow foods for the first few days. Dressing/Wound care: -Keep dressing in place until postoperative follow-up office visit. -Okay to shower. Keep wound out of direct water stream. Can use PressNSeal plastic wrap to protect from shower stream. No soaking or submerging until all the scabs fall off (approximately 6 weeks). -Please call the office if dressing becomes wet, soiled, or saturated. Activities: -Wear collar when sitting upright or standing. May take off to eat and shower. Can sleep without collar, but you may find it more comfortable to wear while sleeping. -Limit bending, lifting, twisting. -Continue with home exercises as directed by your physical therapist. -Ice your incision as needed for pain/inflammation/swelling. You can heat to the back of your neck as needed for pain. Protect your skin with a folded pillowcase. Follow-up: -Follow-up with your surgeon or PA in the office in 10-14 days after surgery. -Follow-up with your surgeon 6 weeks postoperatively. Call the office if you have chest pain, shortness of breath, significant swelling that will not resolve with elevating, fever over 101?, significantly worsening pain. [facility]: [phone] Skin/Wound/Dressing Care Report to your healthcare provider any signs of infection, such as:: chills, fever, night sweats, unusual drainage and unusual redness Visit Report/Discharge Packet Instructions: DI for Anterior Cervical Discectomy and Fusion Stand Alone Forms: Surgery Discharge Discharge Data Primary Care Provider: Uche Fontanez Attending Provider: Krishna Ortega
[2021-09-22 08:15] VITALS: BP 144/91; PULSE 102; RESP 16; TEMP 36.9; O2SAT 96
[2021-09-22 08:27] LABS: Hematocrit 42.3 % (41-53); Hemoglobin 14.3 g/dL (13.5-17.5)
[2021-09-22] MEDS: DORZOLAMIDE 2% OPHTH 10 ML 1 DROPS EYE-RIGHT (09:04)
[2021-09-22] MEDS: hydroCHLOROthiazide 25 MG TABLET 12.5 MG PO (09:06)
[2021-09-22] MEDS: DOCUSATE 100 MG CAPSULE PO (09:07)
[2021-09-22] MEDS: lisinopriL 20 MG TABLET PO (09:07)
--- NOTE | 2021-09-22 10:03 | OT.IP.EVAL ---
Current Diagnoses Other spondylosis with radiculopathy, cervical region (09/21/21) Spinal stenosis, cervical region (09/21/21) Surgery Performed Operation Date: 09/21/21 13:45 Actual Procedures p C4-5, C5-6 ACDF w. anterior instrumentation - Krishna Ortega MD Past Medical History (Last Reviewed 09/22/21 @ 07:55 by Cassidy Mar PA-C) History of arthroplasty of left shoulder (09/20/20) HTN (hypertension) Hx of colonoscopy (2020) ANIBAL on CPAP Osteoarthritis Surgical History (Last Reviewed 09/22/21 @ 07:55 by Cassidy Mar PA-C) History of arthroplasty of left shoulder (09/20/20) Hx of colonoscopy (2020) Occupational Therapy Inpatient Evaluation/Re-Eval M1 PT/OT-IP Prior Functional Status Start: 09/22/21 10:07 Freq: NEEDED Status: Active Protocol: Document 09/22/21 10:07 [facility] (Rec: 09/22/21 10: [facility] [id number]) Medical Review Prior Functional Status Communication Independent Mobility and Gait Independent and did not use any devices. Activities of Daily Living and IADL's Pt needing increased time to get dressed and do IADL needs due to his pain. Social History Household Members spouse Living Arrangements House Number of Floors (Floors) Two Floors Number of Stairs To Enter/Railing? 1 step from the garage with table on the side and can stay on the main level. Home Environment Standard Height Toilet,Tub/ Shower Home Equipment Front Wheel Walker,Straight Cane,Shower Seat without Backrest,Long Handled Sponge, Long Handled Shoe Horn,Ball Shagger Employment Status Retired Additional Social History Comment Pt's will be home for 2 weeks to assist pt before having to go back to work. M2 OT-IP Current Condition Start: 09/22/21 10:07 Freq: Status: Active Protocol: Document 09/22/21 10:07 [facility] (Rec: 09/22/21 10:22 [facility] [id number]) Occupational Therapy Current Condition Current Condition Evaluation Date 09/22/21 Treatment Diagnosis s/p C4-5, C5-6 ACDF Post Operative Precautions Cervical Spine Precautions Soft Collar for Comfort,No Heavy Lifting,Log Roll M3 OT- IP Subjective and Pain Start: 09/22/21 10:07 Freq: Status: Active Protocol: Document 09/22/21 10:07 [facility] (Rec: 09/22/21 10:22 [facility] [id number]) OT- Subjective Occupational Therapy Visit Type Type Initial Evaluation Visit Start Time 09:32 Visit Stop Time 10:03 Total Visit Minutes 31 Occupational Therapy Visit Comments Patient Comments Pt agreed to work with OT and get dressed. Patient/Caregiver Goals TO go home. OT Pain Assessment Pain When Pain Assessed At Rest Pain Present Pain Present Pain Reported Location anterior neck Intensity 4 Scale Used Numeric (0 - 10) M4 OT- IP ADL's Start: 09/22/21 10:07 Freq: Status: Active Protocol: Document 09/22/21 10:07 [facility] (Rec: 09/22/21 10:22 [facility] [id number]) OT [id number] Comments OT Self-Feeding Comments Educated to be sure to sit upright for eating , chew foods thoroughly and that softer foods will be helpful. Able to to go over swallowing needs information with pt. OT ADL-Grooming General Evaluation Grooming Ability Standby Assistance Areas Needing Assistance Retrieving/Set-up of Grooming Items OT ADL-Oral Care General Eval Oral Care Ability Independent Comments Oral Care Comments initial vc to hinge at his hips or spit into a cup to best follow his cervical precautions . OT ADL-Dressing General Eval Upper Body Dressing Ability Minimal Assistance Lower Body Dressing Ability Standby Assistance Comments OT Dressing Comments assist to get his LUE into his shirt. Educated pt to get his weaker leg in first, and take out last. Pt able to do without any devices but does have a rib sawyer to assist if needed at home. Pt able to comfortably cross his legs over to padilla short socks. Able to show and pt able to practice use of sock aid. OT ADL-Toileting Comments OT Toileting Comments Pt not having to go. Spoke on being mindful of his head positioning needs when having to wipe. OT ADL-Bathing Comments OT Bathing Comments Pt states to shower at home and has a shower stool to use. M5 OT- IP IADL's Start: 09/22/21 10:07 Freq: Status: Active Protocol: Document 09/22/21 10:07 [facility] (Rec: 09/22/21 10:22 [facility] [id number]) OT-Instrumental Activities of Daily Living Home Safety Awareness Awareness of Need for Assistance at Home Good Awareness Ability to Problem Solve Emergency Able to Problem Solve Situations M6 OT- IP Functional Cognition Start: 09/22/21 10:07 Freq: Status: Active Protocol: Document 09/22/21 10:07 [facility] (Rec: 09/22/21 10:22 [facility] [id number]) Cognitive Factors Limiting Selfcare Function Cognitive Ability Level of Alertness Alert Patient Orientation Name,Age,Birthday,Month,Date, Year,Day of Week,Place, Situation Attention Span Ability Capable of Focused Attention, Capable of Sustained Attention Ability to Follow Commands Able to Follow Multi-Step Commands Memory Description No Deficits Noted Safety Awareness No Deficits Noted Problem Solving Ability No deficits Noted Cognitive Comments Cognitive Assessment Comments On eval no cognitive deficits noted. OT- Vision and Hearing OT- Hearing Assessment OT- Hearing Assessment WFL OT- Vision Assessment Visual Acuity Glasses All The Time M7 OT- IP Mobility and Balance Start: 09/22/21 10:07 Freq: Status: Active Protocol: Document 09/22/21 10:07 [facility] (Rec: 09/22/21 10:22 [facility] [id number]) OT- Bed Mobility Assessment Rolling Type of Rolling Roll to Left Level of Assistance Independent Supine to Sit Supine to Sit Assist Standby Assistance OT-Transfer Assessment Sit to and From Stand Sit to and from Stand Standby Assistance Transfers Transfer Ability Standby Assistance Technique Transfer Destination Bed,Chair Transfer Technique Stand Step Pivot Devices Transfer Assistive Devices None Comments Mobility Comments Initial education for log rolling and SBA when out of the bed and able to walk in the room with distant SBA and good safety. OT- Balance Assessment Sitting Balance and Reactions Static Sitting Balance Ability Normal Dynamic Sitting Balance Ability Good Standing Balance and Reactions Static Standing Balance Ability Good M8 OT- IP Objective Assessments Start: 09/22/21 10:07 Freq: Status: Active Protocol: Document 09/22/21 10:07 [facility] (Rec: 09/22/21 10:22 [facility] [id number]) OT Gross Range of Motion Upper Extremity Range of Motion Assessment Bilaterally Impaired ROM Impairments Pt limited AROM for BUE and needing assist to help get his shirt on over his left arm. OT-Muscle Tone Assessment Muscle Tone WNL Yes M9 OT- IP Assessment and Plan Start: 09/22/21 10:07 Freq: Status: Active Protocol: Document 09/22/21 10:07 [facility] (Rec: 09/22/21 10:22 [facility] [id number]) OT Summary Assessment and Plan Potential Rehabilitation Potential Excellent Analytic Complexity at Evaluation Low Summary OT Impairments Pain,Dressing,Bathing Progress Towards Goals Progressing Toward Goals Assessment Summary Pt low complexity. Pt doing well, showing good safety and demonstration to follow his cervical precautions. Pt's to stay home for 2 weeks to assist pt. Goals Dressing Goal Independent Bathing Goal Independent Days to Meet Goals 2 Frequency of Treatment Frequency Of Treatment Once a Day Treatment Plan OT Treatment Plan ADL Training,Functional Mobility,Patient/Family Education,Discharge Planning Other Treatment Recommendations and Next shower if still here Treatment Focus Discharge Recommendations OT Discharge Recommendations Home with Assistance Transportation Needs at Discharge Private Vehicle
--- NOTE | 2021-09-22 10:12 | PT.IIE ---
Current Diagnoses Other spondylosis with radiculopathy, cervical region (09/21/21) Spinal stenosis, cervical region (09/21/21) Surgery Performed Operation Date: 09/21/21 13:45 Actual Procedures p C4-5, C5-6 ACDF w. anterior instrumentation - Krishna Ortega MD Medical History (Last Reviewed 09/22/21 @ 07:55 by Cassidy Mar PA-C) HTN (hypertension) ANIBAL on CPAP Osteoarthritis Physical Therapy Inpatient Evaluation/Re-Eval M1 PT/OT-IP Prior Functional Status Start: 09/22/21 10:07 Freq: NEEDED Status: Discharge Protocol: Document 09/22/21 10:07 [facility] (Rec: 09/22/21 10:22 [facility] [id number]) Medical Review Prior Functional Status Communication Independent Mobility and Gait Independent and did not use any devices. Activities of Daily Living and IADL's Pt needing increased time to get dressed and do IADL needs due to his pain. Social History Household Members spouse,children Living Arrangements House Number of Floors (Floors) Two Floors Number of Stairs To Enter/Railing? 1 step from the garage with table on the side and can stay on the main level. 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 M1 PT/OT-IP Prior Functional Status Start: 09/22/21 12:39 Freq: NEEDED Status: Active Protocol: Document 09/22/21 10:12 AB (Rec: 09/22/21 12:48 AB [id number]) Medical Review Prior Functional Status Communication able to make needs known Mobility and Gait pt stated that he is independent with all mobilities and ambulation without AD Social History Household Members spouse Living Arrangements House Number of Floors (Floors) Two Floors Number of Stairs To Enter/Railing? 1 step to enter pt stays on main level of the house Home Environment Standard Height Toilet,Walk in Shower Home Equipment Shower Seat without Backrest, Hand Held Shower,Grab Bars In Shower M2 PT-IP Current Condition Start: 09/22/21 12:39 Freq: NEEDED Status: Active Protocol: Document 09/22/21 10:12 AB (Rec: 09/22/21 12:48 AB [id number]) Physical Therapy Current Condition Current Condition Evaluation Date 09/22/21 Treatment Diagnosis s/p C4-5, L5-6 ACDF; difficulty in walking Onset Date 09/21/21 M3 PT-IP Subjective Start: 09/22/21 12:39 Freq: NEEDED Status: Active Protocol: Document 09/22/21 10:12 AB (Rec: 09/22/21 12:48 AB [email or web address]) Subjective Physical Therapy Visit Type Type Initial Evaluation Visit Start Time 10:12 Visit Stop Time 10:30 Total Visit Minutes 18 Number of MANAGER PHILOSOPHY Visits 0 Physical Therapy Visit Comments Patient Comments agreeable to do PT Therapy Pain Assessment Pain When Pain Assessed At Rest Pain Present Pain Present Pain Reported Location anterior neck Intensity 4 Scale Used Numeric (0 - 10) Pain Management Techniques Apply Cold,Distraction, Modification of Treatment,Re- positioning,Timing of Activity with Medications M4 PT-IP Mobility and Gait Start: 09/22/21 12:39 Freq: NEEDED Status: Active Protocol: Document 09/22/21 10:12 AB (Rec: 09/22/21 12:48 AB [id number]) PT-Bed Mobility Assessment Rolling Type of Rolling Log Rolling Level of Assist Independent Supine to Sit Supine to Sit Independent Sit to Supine Sit to Supine Independent PT-Transfer Assessment Sit to and From Stand Sit to and from Stand Standby Assistance Equipment Transfer Assistive Device None Orthotic/Prosthetic Devices or Brace: Yes Transfers Transfer Destination Bed,Chair Transfer Technique ambulated Transfer Ability Level of Assist Standby Assistance,1 Person Assistance,Use of Upper Extremities Comments Mobility Comments pt sitting on chair. able to recall precautions. completed sit to stand SBA and ambulated to the bed ~ 12 ft without AD SBA to CGA. presents with antalgic gait with increase R side leaning. pt stated that he had a previous injury on his R hip where he tore a muscle ligament. completed log roll sit<>supine mod I. sit to stand sBA and ambulated towards the stairs ~ 150 ft SBA. completed up/down platform steps SBA x 2 sets. pt ambulated back to his room SBA. agreed to stay up on the chair and positioned. call light and table placed within reach. Gait Assessment Gait Gait Assistance Required: Standby Assistance,Contact Guard Assist,1 Person Assist Distance (Feet) 150 Able to Maintain Weight Bearing Status Yes During Gait Assistive Devices Assistive Device None Orthotic/Prosthetic Devices or Brace: Yes Gait Deviations General Gait Pattern Antalgic Factors Limiting Gait Function Factors Limiting Gait Function Decreased Activity Tolerance, Decreased Strength,Limited Range of Motion,Pain,Poor Balance Stair Climbing Assessment Evaluation Level of Assist On Stairs Standby Assistance Devices Stair Climbing Assistive Devices None Technique/Endurance Stair Climbing Direction Ascend and Descend Stair Climbing Technique Step to Step Number of Steps Climbed 1 Query Text: Stair Climbing Set # Repetitions (reps) 2 PT-Balance Assessment Sitting Balance and Reactions Static Sitting Balance Ability Normal Dynamic Sitting Balance Ability Normal Standing Balance and Reactions Static Standing Balance Ability Good Dynamic Standing Balance Ability Good Device Used without AD M5 PT-IP Objective Assessments Start: 09/22/21 12:39 Freq: NEEDED Status: Active Protocol: Document 09/22/21 10:12 AB (Rec: 09/22/21 12:48 AB [email or web address]) Orientation Orientation/Cognition Level of Alertness Alert Orientation Name,Place,Situation Language Function Ability No Deficits Noted Safety Awareness Understands Safety Issues Memory Description No Deficits Noted Strength Lower Extremity Strength Assessment Within Functional Limits Coordination Assessment Gross Coordination Gross Coordination WNL Sensation Assessment Sensation Gross Sensation WNL Muscle Tone Muscle Tone WNL Yes M6 PT-IP Treatment Start: 09/22/21 12:39 Freq: NEEDED Status: Active Protocol: Document 09/22/21 10:12 AB (Rec: 09/22/21 12:48 [email or web address] Physical Therapy Treatment Education Education Provided Precautions,Weight Bearing Status,Safety M7 PT-IP Assessment and Plan Start: 09/22/21 12:39 Freq: NEEDED Status: Active Protocol: Document 09/22/21 10:12 AB (Rec: 09/22/21 12:48 AB [email or web address]) PT Summary Assessment and Plan Potential Rehabilitation Potential Good Status of Condition at Evaluation Stable Summary Impairments Pain,ROM,Strength,Balance, Coordination,Sensation,Tone, Cognition,Bed Mobility, Transfers,Gait,Activity Tolerance Assessment Summary pt requiring SBA with ambulation without AD. pt plans to go home and spouse to assist him. pt may go home when medically stable. Goals Transfer Goal Independent Gait Goal Independent Gait Distance 300 Other Goals up/down 1 steps withotu AD mod I Days to Meet Goals 3 Frequency of Treatment Frequency Of Treatment Twice a Day Treatment Plan Physical Therapy Treatment Plan Bed Mobility Training,Transfer Training,Gait Training, Therapeutic Exercise,Balance Retraining,Post Op Education, Discharge Planning,Hot or Cold Pack,Neuromuscular Re-ed, Coordination Retraining,Manual Therapy Precautions Cervical Spine Precautions Soft Collar for Comfort,No Heavy Lifting,Log Roll Recommendations To Nursing Amount of Assist Needed Standby Assistance Discharge Recommendations PT Discharge Recommendations Home with Assistance Transportation Needs at Discharge Private Vehicle
--- NOTE | 2021-09-22 10:31 | CM.DANOTE ---
DCP: Case received, EMR reviewed and met with patient. Introduced self and role. Was able to obtain information regarding patient's baseline activity status prior to hospitalization. DCP assessment completed with information currently available. Patient is a 61 year old male who admitted yesterday morning to the care of the orthopedic team. PCP: Dr. Fontanez. Payer: confirmed: Karen Luu. Patient came to the hospital via private vehicle for a surgical procedure. Patient had C5-6 anterior cervical diskectomy and fusion. Patient has history of spinal stenosis. Met with patient in his room. He is alert and oriented. He resides with his spouse, Harry in [place]. He is retired from working at [employer]. Patient is independent at his baseline. P: Patient has discharge orders for today, pending working with the therapy team. 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 No History Provided By Patient,Family Member,Medical Record Prior Living Arrangements House Household Members spouse,children Type of transporation used prior to Drives own vehicle admit Independent with ADL's Yes Is patient alert and oriented? Yes Caregiver for Another No Discharge Plan Home Transportation Arrangement Spouse Referrals Initiated None needed Whiteboard Updated in Patient Room with Yes name and ext. # of Wastewater Treatment Plant Instructor Review Status In Process Next Review Type Continued Stay Review Pre-Anesthesia Assessment Start: 09/14/21 14:55 Freq: Status: Active Protocol: Document 09/14/21 14:56 CAB (Rec: 09/14/21 15:01 CAB [id number]) Pre-Anesthesia Assessment PAC Comment Patient is s/p LT TSA 09/20/20. He declined PAC phone assess, reports no changes to medical /medication history. Reviewed medications with patient. Chart review only Patient Information Reviewed Via Chart Review H&P Completed Within 30 Days Yes Diagnostic Results CBC,EKG Comment Outside lab/ECG scanned, COVID screen @ 09/19/21 Primary Care Provider Stephenie Cornejo Seen Specialist in Last 12 Months Yes Specialist Seen Orthopedist Primary Language Cypriot Preferred Language Cypriot Equity Research Analyst Required No Height 6 ft Weight 238 lb Body Mass Index (BMI) 32.3 Barriers to Learning None Hx Anesthesia Reactions No Hx Family Anesthesia Reaction No Hx Malignant Hyperthermia No Hx Blood Transfusion Reaction No Anesthesia Review Requested No Blueprint Tracer No alcohol intake current alcohol intake frequency a few times a week Smoking Status Former smoker how long ago did patient quit smoking September 19 2020 Substance Use Type does not use Pain Present Pain Reported Musculoskeletal Symptoms Limited Range of Motion,Neck Pain,Numbness,Radiating Pain into Limb,Tingling Patient is completely paralyzed or No completely immobile Mental Status Oriented to own ability Hx Sleep Apnea Yes CPAP/BIPAP use prescribed and used routinely Currently Taking a Beta Yoseph No Anti-Coagulant Therapy No Hx Pacemaker/ICD No Pacemaker Rep Required? No Urinary Catheter Present No Hx Urinary Self Catheterization No Diabetes No Presence of External or Internal Medical Yes: Left shoulder Devices Marital Status Lives With spouse Patient Discharge Plan Description Return Home Do You Have Any Spiritual Beliefs That No May Affect Your HC Choices? Do You Have Any Cultural Practices That No May Affect Your HC Choices? Emergency Contact Name HARRY SCHMIDT Emergency Contact Advance Directives? No
--- NOTE | 2021-09-22 10:58 | PC.NURSE ---
Day shift: Paperwork signed and all questions answered. Dressing remains DI with small shadow drainage present. Pt has all personal belongings. Taken to car that his spouse is driving via WC by [employer]. Soft collar in place and has been tolerated well by Pt. Pain well controlled per AUG. scripts sent electronic to Pt's pharmacy electronic. Left unit at approx 1100.
== END 2021-09-22 11:00 | disposition home or self-care (01) ==
LOC: OR 12:06 → AC 12:10
PROVIDERS: Physician Assistant; PCP Orthopaedic Surgery; Referring Provider Orthopaedic Surgery Orthopaedic Surgery of the Spine; Visit Provider Orthopaedic Surgery Orthopaedic Surgery of the Spine
PROC: (CPT 22551; principal; 2021-09-21 13:45)
DX: M47.22 Other spondylosis with radiculopathy, cervical region (principal); M48.02 Spinal stenosis, cervical region; M25.78 Osteophyte, vertebrae; I10 Essential (primary) hypertension; G47.33 Obstructive sleep apnea (adult) (pediatric)
CPT/HCPCS: 22551; 22552; 22853 ×2; 36415; 72040; 76000; 82962; 85014; 85018; 94760; 97161; 97165; 97535; C1776; C1713; J0171; J0330; J0690; J1100; J1170; J2060; J2250; J2405; J2704; J3010; J3410

== ENCOUNTER → 2022-06-30 09:03 | Outpatient (CLI) | payer MEDICARE, OTHER, SELFPAY ==
[2021-09-21 18:43] VITALS: BMI 32.3
--- NOTE | 2022-06-30 | DI.CT.S_ITS ---
PROCEDURE: CT UE RT WO CON INDICATIONS: Presence of right artificial shoulder joint TECHNIQUE: Noncontrast 1-1.5 mm thick sections acquired from the acromioclavicular joint to the inferior scapula, with coronal and sagittal reformatting. COMPARISON: [facility] Outside Film, CR, XR SHOULDER 2+ VIEWS RIGHT, 02/27/2022, 10:39. FINDINGS: Image quality: Excellent. Bones: Postsurgical changes are seen from a right shoulder hemiarthroplasty. Metallic hardware is in expected position without signs of loosening. Subchondral sclerosis and subchondral cystic changes are seen in the glenoid with marginal osteophyte formation and mild remodeling of the articular surface. No significant glenoid retroversion or anteversion is seen. Mild degenerative changes are seen at the acromioclavicular joint. Postsurgical changes are seen in the included cervical spine. The visualized portions of the right ribs are intact. Soft tissues: Moderate glenohumeral joint effusion. No focal rotator cuff muscle atrophy. The ligaments and tendons are not well evaluated with standard CT. The musculature surrounding the shoulder is normal in bulk. The included portions of the right lung are clear. A circumscribed fatty lesion is incidentally noted in the subcutaneous tissues overlying the lower right trapezius muscle measuring 5.4 x 1.4 x 5.7 cm (81/6), which is most likely a benign lipoma. IMPRESSION: 1. Right shoulder hemiarthroplasty is seen with expected appearance. 2. Degenerative changes are seen within the glenoid including subchondral sclerosis, subchondral cystic changes, and marginal osteophyte formation. 3. Mild acromioclavicular joint osteoarthrosis. 4. Incidental benign lipoma in the subcutaneous tissues of the right upper back. Approved by: Mayo Valenzuela M.D. on 06/30/2022 at 11:21
== END ==
PROVIDERS: PCP Physician Assistant; Referring Provider Orthopaedic Surgery; Visit Provider Orthopaedic Surgery
DX: M19.011 Primary osteoarthritis, right shoulder (principal); D17.1 Benign lipomatous neoplasm of skin and subcutaneous tissue of trunk; Z96.611 Presence of right artificial shoulder joint
CPT/HCPCS: 73200

== ENCOUNTER 2022-11-30 11:48 | Emergency (ER) | payer MEDICARE, OTHER, SELFPAY ==
[2021-09-21 18:43] VITALS: BMI 32.3
[2022-11-30 11:54] VITALS: BP 137/72; PULSE 92; RESP 16; TEMP 36.4; O2SAT 98; BMI 31.3
--- NOTE | 2022-11-30 11:59 | DI.RAD.S_ITS ---
PROCEDURE: XR CHEST 1V INDICATIONS: chest pain TECHNIQUE: One view of the chest was acquired. COMPARISON: [facility], , CHEST 2 VIEW, 08/01/2011, 11:03. FINDINGS: Surgical changes and devices: Bilateral shoulder arthroplasties. Lungs and pleura: Lungs are clear. No pleural effusions or pneumothorax. Mediastinum: Mediastinal contours appear normal. Heart size is normal. Bones and chest wall: No suspicious bony lesions. Overlying soft tissues appear unremarkable. IMPRESSION: No acute pulmonary process. Dictated by: Cris Kaur M.D. on 11/30/2022 at 12:43 Approved by: Cris Kaur M.D. on 11/30/2022 at 12:43
[2022-11-30 12:00] VITALS: BP 133/70; PULSE 83; RESP 18; O2SAT 98
[2022-11-30 12:11] LABS: Add Manual Diff / Slide Review NO; Basophils Absolute Auto 100 /uL (0-100); Eosinophils Absolute Auto 100 /uL (0-450); Eosinophils Percent Auto 1.1 % (2-4); Hematocrit 40.3 % (41-53); Hemoglobin 13.8 g/dL (13.5-17.5); Lymphocytes Absolute Auto 1600 /uL (1100-4500); Lymphocytes Percent Auto 25.7 % (25-40); Mean Corpuscular HGB Conc 34.2 % (30-36); Mean Corpuscular Hemoglobin 32.8 PG (26-34); Mean Corpuscular Volume 95.9 fL (80-100); Monocytes Absolute Auto 500 /uL (0-900); Monocytes Percent Auto 8.3 % (3-14); Neutrophils Absolute Auto 4000 /uL (1500-7000); Neutrophils Percent Auto 63.9 % (50-75); Platelet Count 212 X10^3/uL (150-400); Red Cell Distribution Width 14.3 % (11.6-14.8); White Blood Cell Count 6.2 X10^3/uL (4.5-11.0)
--- NOTE | 2022-11-30 12:17 | ED_ITS ---
HPI - Arrhythmia/Palpitations General Chief Complaint: Arrhythmia/Palpitations Stated Complaint: sent by DR hebert issues Time Seen by Provider: 11/30/22 11:57 Source: patient Mode of arrival: Ambulatory Limitations: no limitations History of Present Illness HPI narrative: This is a 62-year-old male with history of chronic joint infection who presents with EKG with left bundle-branch block. Patient states he had surgery in October to clean out his shoulder he states that they found a change on his EKG told him they were concerned did several EKGs did blood work which was all negative and proceeded with the surgery and told him to follow-up regarding blockage on the left side of his heart. Patient followed up with the walk-in clinic today at the [facility] had a repeat EKG and they told him to come to the ER because it shows a left bundle branch block. Patient states no chest pain, no shortness of breath, no syncope, he had about 5 seconds of a palpitation sensation on Sunday. He states no diaphoresis. No nausea no vomiting, no diarrhea no constipation no other symptoms. No swelling in his extremities. Patient states he had had an EKG about a year before then and was told it was normal and that this left bundle-branch block is likely new. He states his only medication is a daily antibiotic, he is supposed to follow with Infectious Disease on the 18 of December. This is because of infection that was in the joint which is why he went to surgery to clean it out. Patient states it has been doing well since then. He is had multiple orthopedic surgeries in the past on his left shoulder, neck, b ack and elbow. No known drug allergies. He uses cigars, he has an alcoholic drink 1 or 2 times weekly. No illicit. His primary care is through the [facility]. He states his orthopedic surgeries for through [facility]. Related Data Home Medications Medication Instructions Recorded Confirmed dorzolamide 2 % eye drops 1 drp EYE-RIGHT DAILY 09/20/20 09/21/21 latanoprost 0.005 % eye drops 1 drp EYE-BOTH DAILY 09/20/20 09/21/21 lisinopril 20 1 tab PO DAILY 09/20/20 09/21/21 mg-hydrochlorothiazide 12.5 mg tablet (Zestoretic) sildenafil 100 mg tablet 100 mg DAILY 09/21/21 09/21/21 Previous Rx's Medication Instructions Recorded acetaminophen 500 mg capsule 500 mg PO Q4H PRN Pain, Mild (1-3) 09/22/21 #90 caps docusate sodium 100 mg capsule 100 mg PO BID PRN constipation 09/22/21 from narcotic pain meds #14 caps hydroxyzine pamoate 25 mg capsule 25 mg PO Q4HR PRN muscle 09/22/21 spasms/pain/nausea #30 caps oxycodone 5 mg tablet See Rx Instructions .Route 09/22/21 .COMPLEX PRN Pain, Severe (7-10) #42 tabs Allergies Allergy/AdvReac Type Severity Reaction Status Date / Time No Known Allergies Allergy Verified 09/21/21 12:21 Review of Systems Review of Systems ROS Unobtainable: All systems reviewed & are unremarkable except as noted in HPI and below Patient History Medical History HTN (hypertension) ANIBAL on CPAP Osteoarthritis Surgical History History of arthroplasty of left shoulder (09/20/20) Hx of colonoscopy (2020) Social History household members: spouse and children Smoking Status: Former smoker alcohol intake: current Smoking Status: Former smoker alcohol intake frequency: a few times a week Substance Use Type: does not use Exam Narrative Exam Narrative: GENERAL: Alert and oriented x three, male in mild distress. HEENT: Head normocephalic, atraumatic, EOMI, pupils reactive, face symmetric, moist mucous membranes NECK: Supple, full range of motion CARDIOVASCULAR: Regular rate and rhythm without murmurs, rubs or gallops. No JVD. RESPIRATORY: Breath sounds equal bilaterally, no wheezes rales or rhonchi. ABDOMEN: Soft, nontender. Normoactive bowel sounds all 4 quadrants. No guarding or rebound, rigidity, no mass : No CVA tenderness EXTREMITIES: Normal range of motion, no clubbing or edema. Neurovascularly intact NEUROLOGICAL: Cranial nerves II through XII grossly intact. Moving all extremities. Normal gait. SKIN: Warm, dry, no petechiae, no rashes or lesions. Initial Vital Signs Initial Vital Signs: Vital Signs Temperature 97.6 F 11/30/22 11:54 Pulse Rate 92 H 06/15/23 11:54 Respiratory Rate 16 11/30/22 11:54 Blood Pressure 137/72 11/30/22 11:54 Pulse Oximetry 98 11/30/22 11:54 Oxygen Delivery Method Room Air 11/30/22 11:54 Course Orders Ordered: ED Orders 11/30/22 11:55 Complete Blood Count AUTO DIFF Stat Comprehensive Metabolic Panel Stat Lipase Stat Magnesium Stat PTT Partial Thromboplastin Partha Stat Prothrombin Time INR Stat Troponin & CK Cardiac Panel Stat 11/30/22 11:58 EKG-12 Lead Stat 11/30/22 11:59 XR chest 1V Stat Discontinued Medications Aspirin (Aspirin 81 Mg Chew Tab) 324 mg PO NOW ONE Stop: 11/30/22 11:59 Last Admin: 11/30/22 12:24 Dose: Not Given Documented By: BEN Vital Signs Vital signs: Vital Signs - 8 hr 11/30/22 11:54 11/30/22 12:00 11/30/22 12:00 Temperature 97.6 F Pulse Rate 92 H 83 Respiratory Rate 16 18 Blood Pressure 137/72 133/70 Pulse Oximetry 98 98 Oxygen Delivery Method Room Air 11/30/22 12:30 11/30/22 12:30 11/30/22 13:00 Temperature Pulse Rate 83 86 Respiratory Rate 18 Blood Pressure 127/82 142/72 H Pulse Oximetry 97 97 Oxygen Delivery Method Room Air MDM - Arrhythmia/Palpitations Lab Data 11/30/22 11:55 11/30/22 11:55 Labs: Lab Results 11/30/22 11/30/22 11/30/22 Range/Units 11:55 11:55 11:55 WBC 6.2 (4.5-11.0) X10^3/uL RBC 4.20 L (4.5-5.9) X10^6/uL Hgb 13.8 (13.5-17.5) g/dL Hct 40.3 L (41-53) % MCV 95.9 (80-100) fL MCH 32.8 (26-34) PG MCHC 34.2 (30-36) % RDW 14.3 (11.6-14.8) % Plt Count 212 (150-400) X10^3/uL Neut % (Auto) 63.9 (50-75) % Lymph % (Auto) 25.7 (25-40) % Elliott % (Auto) 8.3 (3-14) % Eos % (Auto) 1.1 L (2-4) % Baso % (Auto) 1.0 (0-2) % Neut # (Auto) 4000 (7337-0672) /uL Lymph # (Auto) 1600 (5994-3780) /uL Elliott # (Auto) 500 (0-900) /uL Eos # (Auto) 100 (0-450) /uL Baso # (Auto) 100 (0-100) /uL PT 11.9 (10.1-12.7) SECONDS INR 1.0 (0.9-1.3) APTT 33 (26-36) SECONDS Sodium 138 (137-145) mmol/L Potassium 4.2 (3.4-5.1) mmol/L Chloride 102 (98-107) mmol/L Carbon Dioxide 30 (22-32) mmol/L BUN 15 (9-20) mg/dL Creatinine 0.92 (0.66-1.25) mg/dL Estimated GFR > 60 (>60) mL/min BUN/Creatinine Ratio 16.3 (6-22) Glucose 157 H (80-110) mg/dL Calcium 9.4 (8.4-10.2) mg/dL Magnesium 2.0 (1.6-2.3) mg/dL Total Bilirubin 0.6 (0.2-1.3) mg/dL AST 25 (17-59) IU/L ALT 20 (<50) IU/L Alkaline Phosphatase 96 (38-126) U/L Total Creatine Kinase 203 H (55-170) U/L CK-MB (CK-2) TNP CK-MB (CK-2) Rel Index TNP Troponin I < 0.012 (0.01-0.034) ng/mL Total Protein 7.4 (6.3-8.2) g/dL Albumin 4.2 (3.5-5.0) g/dL Globulin 3.2 (1.7-4.1) g/dL Albumin/Globulin Ratio 1.3 (1.0-2.8) Lipase 58 (23-300) U/L Imaging Data Chest x-ray: Radiologist's Impresson: Close Chest X-Ray (Signed) Cris Kaur - 11/30/[address] (Signed) Mayo Valenzuela - 06/30/22 Telemetry Strips 09/21/21 Cervical Spine X-Ray (Signed) Tyshawn Jordan - 09/21/21 Outside EKG 08/16/21 Cervical Spine MRI (Signed) BaironGus - 04/21/21 Telemetry Strips 11/17/20 Shoulder X-Ray (Signed) Tyshawn Jordan - 09/20/20 Shoulder X-Ray (Cancelled) 09/20/20 Telemetry Strips 09/20/20 Outside EKG 08/30/20 [facility] [address] [address] XRay Report Signed Patient: Matthew Quezada MR#: [id number] : 1960 Acct:[id number] Age/Sex: 62 / M Date of Service: 11/30/22 Loc: ED Accession Number: [id number] ?? Procedure: XR chest 1V Ordering Provider: Keri Merritt D.O. PROCEDURE:? XR CHEST 1V ? INDICATIONS:? chest pain ? TECHNIQUE:? One view of the chest was acquired.? ? COMPARISON:? [facility], , CHEST 2 VIEW, 08/01/2011, 11:03. ? FINDINGS:? ? Surgical changes and devices:? Bilateral shoulder arthroplasties. ? Lungs and pleura:? Lungs are clear.? No pleural effusions or pneumothorax.? ? Mediastinum:? Mediastinal contours appear normal.? Heart size is normal.? ? Bones and chest wall:? No suspicious bony lesions.? Overlying soft tissues appear unremarkable.? ? IMPRESSION:? No acute pulmonary process. ? ? Dictated by: Cris Kaur M.D. on 11/30/2022 at 12:43 ? ? Approved by: Cris Kaur M.D. on 11/30/2022 at 12:43?? ECG Data Attestation: I personally reviewed and interpreted this ECG as follows: Prior ECG tracings: not available for review Interpretation: Patient has bundle-branch block with a rate 83 MI 178, QRS of 166 and QTC of 486. No acute ST changes appreciated. 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 Patient does have an EKG from earlier today from the clinic. It shows a left bundle-branch block, rate of 70 6p are 172 QRS of 172 with a QTC of 481. No acute or dynamic changes appreciated. MDM Narrative Medical decision making narrative: This is a 62-year-old male with no complaints other than change on EKG who presents after being seen at the clinic and sent. Patient is asymptomatic he had 5 seconds of some palpitations on Sunday but no other issues. His EKG was found to have likely a left bundle-branch block by his description in October had some blood work workup and they proceeded with surgery. Patient does note that he had an EKG about a year ago he states he was told it was normal and no one told him about any bundle-branch block so this may be a new electrical change. Patient had labs, chest x-ray : Shows CK of 203 and glucose of 157 otherwise troponin was reassuring, CBC negative. Asymptomatic male with left bundle branch block discussed with patient would recommend follow up with his physician they may wish to pursue having an echo and/or outpatient stress testing if it is found he has a new left bundle-branch block in the past year. Spoke with patient's Primary care Maria A Walker. She notes he would mentioned the 5 seconds of palpitations on Sunday she states they can not send labs and get them back at takes about a week so was sent for baseline labs and happy to set up outpatient cardiology follow-up/echo stress testing. Discharge Plan Departure Patient Disposition: Home Clinical Impression: Left bundle branch block (LBBB) Activity Restrictions/Additional Instructions: Please follow up with your physician, you do have a left bundle-branch block on your EKG today. A copy of your EKG is included with your paperwork. This is a problem with the electrical conduction through your heart. Should be followed and your physician may wish to order an echo or outpatient stress testing for more evaluation depending on their evaluation. Continue your home medications as prescribed. Please return for new chest, shortness of breath, lightheadedness or passing out, swelling of your extremities or other new or concerning changes. Prescriptions: No Action dorzolamide 2 % drops 1 drp EYE-RIGHT DAILY latanoprost 0.005 % drops 1 drp EYE-BOTH DAILY lisinopril-hydrochlorothiazide [Zestoretic] 20-12.5 mg tablet 1 tab PO DAILY sildenafil 100 mg tablet 100 mg DAILY acetaminophen 500 mg capsule 500 mg PO Q4H MDD max 3000 mg per day PRN (Reason: Pain, Mild (1-3)) Qty: 90 0RF docusate sodium 100 mg Capsule 100 mg PO BID PRN (Reason: constipation from narcotic pain meds) Qty: 14 0RF hydroxyzine pamoate 25 mg Capsule 25 mg PO Q4HR PRN (Reason: muscle spasms/pain/nausea) Qty: 30 0RF oxycodone 5 mg Tablet See Rx Instructions .ROUTE .COMPLEX PRN (Reason: Pain, Severe (7-10)) Qty: 42 0RF Rx Instructions: take 1-2 tablets by mouth every 4 hours as needed for moderate to severe postop pain Referrals: Maria A Walker PA-C [Primary Care Provider] - Stand Alone Forms: Patient Portal/API
[2022-11-30 12:19] LABS: Prothrombin Time 11.9 SECONDS (10.1-12.7)
[2022-11-30 12:22] LABS: PTT Partial Thromboplastin Tim 33 SECONDS (26-36)
[2022-11-30 12:25] LABS: Alanine Aminotransferase 20 IU/L (<50); Albumin 4.2 g/dL (3.5-5.0); Albumin Globulin Ratio 1.3 (1.0-2.8); Alkaline Phosphatase 96 U/L (38-126); Aspartate Aminotransferase 25 IU/L (17-59); BUN Creatinine Ratio 16.3 (6-22); Bilirubin Total 0.6 mg/dL (0.2-1.3); Blood Urea Nitrogen 15 mg/dL (9-20); Calcium 9.4 mg/dL (8.4-10.2); Carbon Dioxide 30 mmol/L (22-32); Chloride 102 mmol/L (98-107); Creatine Kinase 203 U/L (55-170); Estimated Glomerular Filt Rate > 60 mL/min (>60); Globulin 3.2 g/dL (1.7-4.1); Glucose 157 mg/dL (80-110); HEMOLYSIS < 15 (0-50); Lipase 58 U/L (23-300); Potassium 4.2 mmol/L (3.4-5.1); Sodium 138 mmol/L (137-145); Total Protein 7.4 g/dL (6.3-8.2)
--- NOTE | 2022-11-30 12:25 | PC.NURSE ---
Patient arrives after having a visit with ANSON at [facility]. Patient had an earlier visit from a hospital and was advised to tell primary care that he had a non normal EKG. The clinic performed an EKG and sent patient to the ED due to EKG report that shows left bundle branch block. Patient denies having any complaints of pain. Patient only came because he was directed to do so. Provider informed.
[2022-11-30 12:30] VITALS: BP 127/82; PULSE 83; O2SAT 97
[2022-11-30 12:36] LABS: Troponin I < 0.012 ng/mL (0.01-0.034)
[2022-11-30 13:00] VITALS: BP 142/72; PULSE 86; RESP 18; O2SAT 97
== END 2022-11-30 13:03 | disposition home or self-care (01) ==
PROVIDERS: Emergency Provider Emergency Medicine; PCP Physician Assistant
DX: I44.7 Left bundle-branch block, unspecified (principal); R00.2 Palpitations
CPT/HCPCS: 36415; 71045; 80053; 82550; 83690; 83735; 84484; 85025; 85610; 85730; 93005; 99284

== ENCOUNTER → 2023-03-15 09:40 | Outpatient (CLI) | payer MEDICARE, OTHER, SELFPAY ==
[2021-09-21 18:43] VITALS: BMI 32.3
--- NOTE | 2023-03-16 01:22 | DI.NM.S_ITS ---
DATE OF SERVICE: 03/15/2023 PROCEDURE: Pharmacological perfusion study. INDICATION: Left bundle branch block with underlying hypertension. RADIOPHARMACEUTICAL: 27.5 millicurie technetium-99m Myoview IV was injected at stress and 9.1 millicurie technetium-99m Myoview IV was injected at rest. CARDIAC STRESS: The patient underwent IV Lexiscan perfusion study under the supervision of an supervision of an attending staff using standard intravenous Lexiscan as per protocol. The patient remained hemodynamically stable. Baseline blood pressure 122/84 and resting heart rate 77. Resting rhythm sinus with underlying left bundle branch block. During stress no new convincing ischemic changes seen. No new significant arrhythmia. Had minimal dyspnea. No chest discomfort. RAW DATA: The patient's weight is 230 pounds. There is a hot spot near the inferior border and apex seen. GATED STUDY: Stress LV ejection fraction 55% without any significant wall motion abnormality other than septum movement suggestive of conduction abnormality. TID ratio within normal limits. The stress and as end-diastolic volume 169 mL. Lung/heart ratio 0.34, which is within normal limits. MYOCARDIAL PERFUSION SCAN: 1. Stress supine, resting supine, and stress prone images were compared to each other. Multiple perfusion defects as outlined below. Stress supine and resting supine images showed large size, moderate to severely decreased perfusion of inferior wall extending into the inferoapex, as well as distal inferolateral wall. During stress prone images, inferior wall defect got significantly improved; however, patient remained have a small to moderate size, severely decreased perfusion of inferoapex and distal inferolateral wall. 2. There is a large size, moderate to severely decreased perfusion of anterior wall as well as anteroseptum seen during stress supine and resting supine images. During stress prone images, distal anterior wall perfusion defect got improved; however, patient remained to have significantly decreased perfusion of base to mid anterior wall and entire anteroseptum. No reversible ischemia. Summed stress score 15 and summed rest score 22 with a resting images worse than stress supine images. CONCLUSION: This is an abnormal myocardial perfusion study. There is no reversible ischemia; however, one cannot rule out the possibility of base to mid anterior wall and anteroseptal infarction as well as distal inferoapical and distal inferolateral infarction. This is a pharmacological study. The patient has underlying left bundle branch block, and theoretically it can cause septal and anterior wall defect. During stress, the gated study LV function preserved without any significant wall motion abnormalities. Correlate clinically. Consider left heart catheterization if clinical suspicion for coronary artery disease is high. Matthew Quezada - ARUN/aurora/mahamed doc#: [id number]/job#: [id number] dd: 03/15/2023 17:07:00 dt: 03/16/2023 01:12:00 DICTATING MD/COPIES TO: Burak Clarke MD COPIES MNE: SINGH;
== END ==
PROVIDERS: PCP Physician Assistant; Referring Provider Internal Medicine Cardiovascular Disease; Visit Provider Internal Medicine Cardiovascular Disease
DX: I44.7 Left bundle-branch block, unspecified (principal); I10 Essential (primary) hypertension; R94.39 Abnormal result of other cardiovascular function study
CPT/HCPCS: 78452; 93017; A9502; J2785

== ENCOUNTER → 2023-07-12 10:14 | Outpatient (CLI) | payer MEDICARE, OTHER, SELFPAY ==
[2021-09-21 18:43] VITALS: BMI 32.3
== END ==
LOC: PHYS 10:16
PROVIDERS: Family Provider Physician Assistant; PCP Physician Assistant; Referring Provider Student in an Organized Health Care Education/Training Program; Visit Provider Student in an Organized Health Care Education/Training Program
DX: R20.2 Paresthesia of skin (principal)
CPT/HCPCS: 95886; 95909

== ENCOUNTER 2023-07-23 10:30 | Outpatient (RCR) | payer MEDICARE, OTHER, SELFPAY ==
[2021-09-21 18:43] VITALS: BMI 32.3
--- NOTE | 2023-07-17 16:00 | OT.OP.EVAL ---
Visit Care Team Role Provider Type Maria A Walker PA-C Family Provider Non-Staff Primary Care Provider Specialty: Medical Address: [address] [place] [address], [address] Phone: Fax: Email: [email or web address] Attending Provider Non-Staff Referring Provider Specialty: Medical Address: [address] [place] [address], [id number] Email: Occupational Therapy Initial Evaluation OT Outpatient Adult Evaluation Start: 07/18/23 08:53 Freq: Status: Active Protocol: Document 07/17/23 16:00 AMS (Rec: 07/18/23 08:58 AMS [id number]) General Information - Adult Visit Number 06/27; 07/06 19 visit -> KX Modifier Plan of Care Dates 07/17/23 - 08/28/23 Insurance Information Medicare; Prime referral Visit Start Time 12:17 Visit Stop Time 13:00 Treatment Setting Outpatient Care Note Type Initial Evaluation Identification Confirmed Yes Identification Confirmed By Self Assessment/Plan Treatment Assessment Matthew is 63 years-old, right hand dominant, and referred to OT secondary to L hand palm/ numbness w/ (+) Tinel's. Matthew reported that he also had a nerve conduction study here at [facility] which confirmed L CTS. Medical History Form completed; significant for arthritis, blood pressure, neck pain, surgery on R elbow (05/23), R and L shoulder replacements (), back surgery (02/27), L shoulder revision surgery (), neck fusion (11/06), R shoulder revision surgery (). Matthew reported that change in sensation of L hand presented in March 2023; he is wearing L wrist brace at night (which markedly reduces pain/discomfort) and has recently begun propping distal L UE on pillow. Hand/Wrist Pain Assessment Grid completed; indication of 4 out of 10 on pain scale relative to volar/dorsal surfaces of L hand. Whole body Pain Assessment Grid completed; indication of 4 out of 10 on pain scale relative to R shoulder and volar/ dorsals surfaces of L hand. QuickDASH UE Outcome Measure Score = 22.73; QuickDASH UE Sports/Performing Arts Module Score = 50.00. Goniometer Pain-free AROM Measurements = 0-60 degrees R wrist ext vs 0-60 degrees L wrist ext; 0-35 degrees R wrist flex vs 0-45 degrees L wrist flex; 0-[address]; 0-30 degrees bilateral wrist UD. Wrist Strength = 5/5 MMT R wrist flex, ext, RD, UD. 5/5 MMT L wrist flex, ext, RD, UD. 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 males 89.7 +/- 20.4) vs 44.0# of force L coin wrapping machine operator ( compared to 60-64 y.o. males 76.8 +/- 20.3). 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 Pinchometer results = 21.0# of force R lateral solorio pinch (compared to 60-64 y.o. males 23.2 +/- 5.4 ) vs 16.5# of force L lateral solorio pinch (compared to 60-64 y .o. males 22.2 +/- 4.1). 19.0# of force R 3-jaw pinch ( compared to 60-64 y.o. males 21.8 +/- 3.3) vs 16.0# of force L 3-jaw pinch (compared to 60-64 y.o. males 21.2 +/- 3 .2). 8.5# of force R tip pinch (compared to 60-64 y.o. males 15.8 +/- 3.9) vs 8.5# of force L tip pinch (compared to 60-64 y.o. males 15.3 +/- 3.7 ). Matthew presents with change in sensation of distal L UE/hand w/ symptoms presenting in March of 2023; he is actively wearing a night brace which positions his wrist slightly in wrist extension. He has previously received outpatient PT for distal R UE d/t elbow injury w/ noted improved R forearm supination. 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 Recommend outpatient OT for instruction in conservative measures of treatment and return to PCP vs referral to UE instructional services specialist for exploration of less conservative measures of treatment for impaired sensation. Home Exercise Program 07/17/23= Instructed in self- myofascial release hold for 20 -30 sec, 1-2 reps; tendon glide series (x 5 cycles) daily; passive wrist flex w/ elbow in 90 degrees flex and passive wrist ext w/ elbow in 90 degrees flex w/ hold for 20 -30 sec, 1-2 reps. Discomfort reported in L thumb w/ median nerve glide. Length of treatment (weeks) 6 Plan of Care Start Date 07/17/23 Plan of Care End Date 08/28/23 Treatment Frequency Once a Week Therapeutic Contents Active Range of Motion, Adaptive Equipment Education, Functional Activities,Home Exercise Program,Joint Protection,Manual Therapy, Education,Neurodevelopment Treatment,Neuromuscular Re- Education,Self-Care,Stretching /Flexibility Activities, Therapeutic Activities, Therapeutic Exercises, Modalities Modalities As Needed,As Prescribed Additional Types of Modalities Heat/Ice/Contrast Baths/ Paraffin/Ultrasound
--- NOTE | 2023-07-23 12:21 | OT.OP.DC ---
Visit Care Team Role Provider Type Maria A Walker PA-C Family Provider Non-Staff Primary Care Provider Address: [address] [place] [address], [id number] Phone: Fax: Email: [email or web address] Attending Provider Non-Staff Referring Provider Address: [address] [place] [address], [id number] Email: OT Outpatient OT Outpatient Adult Evaluation Start: 07/18/23 08:53 Freq: Status: Active Protocol: Document 07/17/23 16:00 AMS (Rec: 07/18/23 08:58 AMS [id number]) General Information - Adult Visit Information Visit Number 06/27; 07/06 19 visit -> KX Modifier Plan of Care Dates 07/17/23 - 08/28/23 Insurance Information Medicare; Prime referral Session Time Visit Start Time 12:17 Visit Stop Time 13:00 Setting Treatment Setting Outpatient Care Visit Type Note Type Initial Evaluation Identification Identification Confirmed Yes Identification Confirmed By Self Assessment/Plan Assessment Treatment Assessment Matthew is 63 years-old, right hand dominant, and referred to OT secondary to L hand palm/ numbness w/ (+) Tinel's. Matthew reported that he also had a nerve conduction study here at [facility] which confirmed L CTS. Medical History Form completed; significant for arthritis, blood pressure, neck pain, surgery on R elbow (05/23), R and L shoulder replacements (), back surgery (02/27), L shoulder revision surgery (), neck fusion (11/06), R shoulder revision surgery (). Matthew reported that change in sensation of L hand presented in March 2023; he is wearing L wrist brace at night (which markedly reduces pain/discomfort) and has recently begun propping distal L UE on pillow. Hand/Wrist Pain Assessment Grid completed; indication of 4 out of 10 on pain scale relative to volar/dorsal surfaces of L hand. Whole body Pain Assessment Grid completed; indication of 4 out of 10 on pain scale relative to R shoulder and volar/ dorsals surfaces of L hand. QuickDASH UE Outcome Measure Score = 22.73; QuickDASH UE Sports/Performing Arts Module Score = 50.00. Goniometer Pain-free AROM Measurements = 0-60 degrees R wrist ext vs 0-60 degrees L wrist ext; 0-35 degrees R wrist flex vs 0-45 degrees L wrist flex; 0-[address]; 0-30 degrees bilateral wrist UD. Wrist Strength = 5/5 MMT R wrist flex, ext, RD, UD. 5/5 MMT L wrist flex, ext, RD, UD. 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 males 89.7 +/- 20.4) vs 44.0# of force L tuber machine operator helper ( compared to 60-64 y.o. males 76.8 +/- 20.3). [employer] Access Developer strength with elbows extended = 83.0# of force R tuber machine operator helper vs 43.0# of force L tuber machine operator helper. Pinchometer results = 21.0# of force R lateral solorio pinch (compared to 60-64 y.o. males 23.2 +/- 5.4 ) vs 16.5# of force L lateral solorio pinch (compared to 60-64 y .o. males 22.2 +/- 4.1). 19.0# of force R 3-jaw pinch ( compared to 60-64 y.o. males 21.8 +/- 3.3) vs 16.0# of force L 3-jaw pinch (compared to 60-64 y.o. males 21.2 +/- 3 .2). 8.5# of force R tip pinch (compared to 60-64 y.o. males 15.8 +/- 3.9) vs 8.5# of force L tip pinch (compared to 60-64 y.o. males 15.3 +/- 3.7 ). Matthew presents with change in sensation of distal L UE/hand w/ symptoms presenting in March of 2023; he is actively wearing a night brace which positions his wrist slightly in wrist extension. He has previously received outpatient PT for distal R UE d/t elbow injury w/ noted improved R forearm supination. 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 Recommend outpatient OT for instruction in conservative measures of treatment and return to PCP vs referral to UE account resolution specialist for exploration of less conservative measures of treatment for impaired sensation. Home Exercise Program 07/17/23= Instructed in self- myofascial release hold for 20 -30 sec, 1-2 reps; tendon glide series (x 5 cycles) daily; passive wrist flex w/ elbow in 90 degrees flex and passive wrist ext w/ elbow in 90 degrees flex w/ hold for 20 -30 sec, 1-2 reps. Discomfort reported in L thumb w/ median nerve glide. Plan Length of treatment (weeks) 6 Plan of Care Start Date 07/17/23 Plan of Care End Date 08/28/23 Treatment Frequency Once a Week Therapeutic Contents Active Range of Motion, Adaptive Equipment Education, Functional Activities,Home Exercise Program,Joint Protection,Manual Therapy, Education,Neurodevelopment Treatment,Neuromuscular Re- Education,Self-Care,Stretching /Flexibility Activities, Therapeutic Activities, Therapeutic Exercises, Modalities Modalities As Needed,As Prescribed Additional Types of Modalities Heat/Ice/Contrast Baths/ Paraffin/Ultrasound Functional Wrist/Hand Scan Hand Side Sensory Assessment Sensory Profile2 OT Outpatient Treatment Note - Adult Start: 07/18/23 08:53 Freq: Status: Active Protocol: Document 07/23/23 12:15 AMS (Rec: 07/23/23 12:21 [facility] [id number]) OT Outpatient Adult Treatment Note Session Time Visit Start Time 12:17 Visit Stop Time 13:00 Visit Information Visit Number 07/28; 08/06 19 visit -> KX Modifier Plan of Care Dates 07/17/23 - 08/28/23 Insurance Information Medicare; [facility] referral Setting Treatment Setting Outpatient Care Visit Type Note Type Treatment Note General Information General Information Matthew is 63 years-old, right hand dominant, and referred to OT secondary to L hand palm/ numbness w/ (+) Tinel's. Matthew reported that he also had a nerve conduction study here at [facility] which confirmed L CTS. Medical History Form completed; significant for arthritis, blood pressure, neck pain, surgery on R elbow (05/23), R and L shoulder replacements (), back surgery (02/27), L shoulder revision surgery (), neck fusion (11/06), R shoulder revision surgery (). Matthew reported that change in sensation of L hand presented in March 2023; he is wearing L wrist brace at night (which markedly reduces pain/discomfort) and has recently begun propping distal L UE on pillow. - Subjective Identification Type Name Identification Reconciled With Medical Record Observations (+) compliance with home exercise program; (+) use of night time splint, as well as pillow; (+) awareness of positioning of wrist and impact on sensation. Patient/Caregiver Compliance with Home Excellent Exercise Program - Objective Fdc Goals Matthew is independent with home exercise program; he denies any questions re: home exercises or recommendations. - - Assessment Assessment of Improvement Matthew is independent with his home exercise program; he reports holding the stretches x 30 seconds and doing a couple of sets. He denies any questions re: home exercises or recommendations. He is wearing his night splint and using a pillow. Recommend d/c from outpatient OT at this time. Home Exercise Program 07/23/23 = Instructed in self- myofascial thumb adductor release vs manual (as another option). Also instructed in hook fist passive stretch w/ addition of min hyperextension at MPJs at 2nd, 3rd, 4th, and 5th w/ hold for 20-30 sec, 1- 2 reps. 07/17/23= Instructed in self- myofascial release at wall hold for 20-30 sec, 1-2 reps; tendon glide series (x 5 cycles) daily; passive wrist flex w/ elbow in 90 degrees flex and passive wrist ext w/ elbow in 90 degrees flex w/ hold for 20-30 sec, 1-2 reps. Discomfort reported in L thumb w/ median nerve glide. - Plan Therapy Recommendations Discharge to Home Exercise Program
== END 2023-07-25 10:40 | disposition home or self-care (01) ==
LOC: OT 10:30
PROVIDERS: Family Provider Physician Assistant; PCP Physician Assistant; Referring Provider Student in an Organized Health Care Education/Training Program; Visit Provider Student in an Organized Health Care Education/Training Program
DX: R20.2 Paresthesia of skin (principal)
CPT/HCPCS: 97110; 97165

== ENCOUNTER 2024-09-18 11:55 | Day surgery (SDC) | payer MEDICARE, OTHER, SELFPAY ==
[2021-09-21 18:43] VITALS: BMI 32.3
--- NOTE | 2024-09-18 | PATH_ITS ---
[facility] Accession Number: [id number] No. of containers..04 Tissue . 01 Material submitted: . PART A: cecum - CECAL POLYPS PART B: colon - DESCENDING POLYPS PART C: sigmoid colon - SIGMOID POLYPS PART D: rectum - RECTAL POLYPS . 01 Diagnosis: A. CECUM: Tubular adenomas. . B. DESCENDING COLON: Tubular adenomas and hyperplastic polyp. . C. SIGMOID COLON: Hyperplastic polyps. . D. RECTUM: Hyperplastic polyp. MRV 09/19/2024 1544 Local . 01 Electronically signed: . Shanelle Mata DO, Pathologist NPI- [id number] . 01 Gross description: . Part A: CECAL POLYPS: Received in formalin are 4 fragment(s) of mendoza, soft tissue measuring 0.2 x 0.2 x 0.1 cm to 0.5 x 0.5 x 0.4 cm submitted entirely in 1 cassette(s) Part B: DESCENDING POLYPS: Received in formalin are 3 fragment(s) of mendoza, soft tissue measuring 0.3 x 0.2 x 0.1 cm to 0.9 x 0.4 x 0.3 cm submitted entirely in 1 cassette(s) Part C: SIGMOID POLYPS: Received in formalin are 2 fragment(s) of mendoza, soft tissue measuring 0.1 x 0.1 x 0.1 cm to 1.2 x 0.4 x 0.3 cm submitted entirely in 1 cassette(s) Part D: RECTAL POLYPS: Received in formalin is 1 fragment(s) of mendoza, soft tissue measuring 0.5 x 0.4 x 0.3 cm submitted entirely in 1 cassette(s) /JASE 09/18/2024 2347 Local . 01 Pathologist provided ICD-10: Z12.11 . 01 CPT . 907924, 682109, 387738, 599188 Specimen Comment: A courtesy copy of this report has been sent to [phone] Performed at: [address] [id number] MD Julius Dillard MD Phone: [phone]
[2024-09-18 12:27] VITALS: BP 135/84; PULSE 73; RESP 16; TEMP 36.2; O2SAT 100
[2024-09-18] MEDS: LACTATED RINGERS 1,000 ML 42 ML IV (12:29)
--- NOTE | 2024-09-18 13:24 | PM.HP.IH.1 ---
History of Present Illness History of Present Illness Date Patient Seen: 09/18/24 Time Patient Seen: 13:24 Chief complaint: Screening Colonoscopy Narrative: Matthew is a 64-year-old man who had a colonoscopy in 2020. He had multiple tubular adenomas removed. No family history of colon cancer. [facility] Medical History HTN (hypertension) ANIBAL on CPAP Osteoarthritis Surgical History History of arthroplasty of left shoulder (09/20/20) Hx of colonoscopy (2020) Social History household members: spouse and children Smoking Status: Former smoker alcohol intake: current Meds Home Medications and Allergies Home Medications Medication Instructions Recorded Confirmed Type dorzolamide 2 % eye drops 1 drp EYE-RIGHT DAILY 09/20/20 09/21/21 History latanoprost 0.005 % eye drops 1 drp EYE-BOTH DAILY 09/20/20 09/21/21 History lisinopril 20 1 tab PO DAILY 09/20/20 09/18/24 History mg-hydrochlorothiazide 12.5 mg tablet (Zestoretic) sildenafil 100 mg tablet 100 mg DAILY 09/21/21 09/18/24 History acetaminophen 500 mg capsule 500 mg PO Q4H PRN Pain, Mild (1-3) 09/22/21 09/18/24 Rx #90 caps docusate sodium 100 mg capsule 100 mg PO BID PRN constipation 09/22/21 Rx from narcotic pain meds #14 caps hydroxyzine pamoate 25 mg capsule 25 mg PO Q4HR PRN muscle 09/22/21 Rx spasms/pain/nausea #30 caps oxycodone 5 mg tablet See Rx Instructions .Route 09/22/21 Rx .COMPLEX PRN Pain, Severe (7-10) #42 tabs sodium,potassium,mag sulfates 17.5 See Rx Instructions PO .COMPLEX 08/15/24 Rx gram-3.13 gram-1.6 gram oral soln #354 mL (Suprep Bowel Prep Kit) atorvastatin 10 mg tablet (Lipitor) 10 mg PO DAILY 09/18/24 09/18/24 History carvedilol 12.5 mg tablet 12.5 mg PO BID 09/18/24 09/18/24 History clopidogrel 75 mg tablet 75 mg PO DAILY 09/18/24 09/18/24 History empagliflozin 10 mg tablet 10 mg PO DAILY 09/18/24 09/18/24 History (Jardiance) spironolactone 25 mg tablet 25 mg PO DAILY 09/18/24 09/18/24 History valsartan 160 mg tablet 160 mg PO DAILY 09/18/24 09/18/24 History Allergies Allergy/AdvReac Type Severity Reaction Status Date / Time No Known Allergies Allergy Verified 09/18/24 12:07 Exam Vital Signs (past 8 hours): - 09/18/24 12:27 Temperature 97.1 F L Pulse Rate 73 Respiratory Rate 16 Blood Pressure 135/84 Pulse Oximetry 100 Oxygen Delivery Method Room Air Oxygen Delivery Method Room Air Const General: No acute distress Resp Effort & Inspection: normal respiratory effort Assessment & Plan Assessment and plan (1) History of colon polyps: Status: Acute Plan Colonoscopy Time-Based Coding :: [TOTAL MINUTES] spent with patient and on the chart (including review of chart, obtaining history, exam, reviewing outside data, placing orders, documenting exam and treatment plan, and counseling patient) on [DATE]. PROFEE Audit Control Clerk Document charge(s): No
[2024-09-18 14:13] VITALS: BP 134/92; PULSE 76; RESP 12; TEMP 36.4; O2SAT 96
[2024-09-18 14:18] VITALS: BP 135/90; PULSE 75; RESP 12; TEMP 36.3; O2SAT 98
--- NOTE | 2024-09-18 14:19 | PM.OP.COLON ---
Operative Date/Time/Diagnoses Date of procedure: 09/18/24 Time of procedure: 14:19 Pre-op diagnosis: History of polyps Post-op diagnosis: same Procedure & Clinicians Study performed: Colonoscopy Same procedure as scheduled: Yes Surgeon: Satish Taylor Procedure Notes Procedure in detail: Surgeon: Satish Taylor MD Anesthesia: Renetta Wen CRNA Procedure: The patient was brought to the endoscopy suite, placed in left lateral decubitus position. The patient was connected to monitoring devices. A time-out was performed. Sedation was administered. Once the patient was adequately sedated, a digital rectal exam was performed and was normal. The scope was then inserted and advanced to the cecum where the appendiceal orifice was identified and photographed. The scope was then slowly withdrawn over greater than 6 minutes. The mucosa was thoroughly inspected. There were 2 polyps in the cecum, both about 7 mm and removed with cold snare. There were sent together. There were 2 small polyps in the descending colon removed with cold snare and sent together. It there were 2 small polyps in the sigmoid colon removed with a cold snare and sent together. There were 3 small polyps in the rectum removed with cold snare and sent together. The scope was retroflexed in the rectum. The scope was straightened and removed. The patient was awakened and brought to recovery. Scope withdrawal time: 29 minutes Sedation time: 37 minutes EBL: 5 mL Findings: Multiple subcentimeter polyps as described above Post-procedure Disposition: PACU
[2024-09-18 14:25] VITALS: BP 110/85; PULSE 77; RESP 12; TEMP 36.3; O2SAT 100
[2024-09-18 14:32] VITALS: BP 125/67; PULSE 73; RESP 18; TEMP 36.3; O2SAT 99
[2024-09-18 14:45] VITALS: O2SAT 96
== END 2024-09-18 14:48 | disposition home or self-care (01) ==
PROVIDERS: Family Provider Physician Assistant; PCP Physician Assistant; Referring Provider Surgery; Visit Provider Surgery
PROC: 0DJD8ZZ Inspection of Lower Intestinal Tract, Via Natural or Artificial Opening Endoscopic (ICD-10-PCS; CPT 45378; principal; 2024-09-18 13:00)
DX: Z12.11 Encounter for screening for malignant neoplasm of colon (principal); Z86.0100 Personal history of colon polyps, unspecified; D12.0 Benign neoplasm of cecum; D12.4 Benign neoplasm of descending colon; K63.5 Polyp of colon; K62.1 Rectal polyp
CPT/HCPCS: 45385; J2704